=== PATIENT | female | born 1970 | race Caucasian/White ===

== ENCOUNTER 2020-10-13 13:50 | Outpatient (REF) | payer OTHER, SELFPAY | END 2020-10-13 13:51 | disposition home or self-care (01) | LOC: HO.LAB 13:50 | PROVIDERS: Visit Provider Internal Medicine | DX: Z20.828 Contact with and (suspected) exposure to other viral communicable diseases (principal) | CPT/HCPCS: C9803; U0003 ==

== ENCOUNTER 2022-06-01 11:48 | Emergency (ER) | payer OTHER, SELFPAY ==
--- NOTE | ~2022-06-01 | CT_ITS ---
EXAMINATION: CTA ABDOMEN AND PELVIS WITHOUT AND WITH CONTRAST (GI bleeding study) CLINICAL INFORMATION: Epigastric pain with melanoma and suspected peptic ulcer disease COMPARISON: None TECHNIQUE: Multidetector volumetric imaging was performed from the superior aspect of the liver through the pubic symphysis both before as well as following administration of 85 mL of Omnipaque 350. A third set of CT scans was performed 2 minutes after the administration of the IV contrast. Sagittal and coronal reformatted images were obtained on the technologist's workstation. Additional 2-D coronal and sagittal reformatted images and axial 3-D maximum intensity projection MIP images are generated on the CT workstation. This CT examination was performed using dose optimization techniques as appropriate, variously including the following: *Automated exposure control *Adjustment of mA and/or kV according to patient size (this includes techniques or standardized protocols for targeted exams where dose is matched to indication/reason for exam; i.e. extremities or head) *Use of iterative reconstruction technique DLP: 1817 mGy-cm FINDINGS: LUNG BASES: The visualized lung bases are unremarkable. LIVER, GALLBLADDER, AND BILIARY TREE: The liver is normal in size, shape, and attenuation. No focal hepatic lesion or biliary ductal dilatation is present. The gallbladder is unremarkable with no evidence of radiopaque gallstones, gallbladder wall thickening, or obvious pericholecystic inflammatory changes. PANCREAS: Unremarkable. SPLEEN: Spleen is mildly enlarged measuring a maximum of 13.2 cm in greatest transverse dimension. ADRENAL GLANDS: Unremarkable. KIDNEYS AND URETERS: The kidneys are normal in size, shape, and attenuation. No hydronephrosis, hydroureter, or calculi seen. No perinephric stranding. BLADDER: Unremarkable. GASTROINTESTINAL TRACT: The small and large bowel are unremarkable. There is no accumulation of contrast seen in bowel during or after the administration of IV contrast to suggest an active GI bleed at the time of this study. The appendix is unremarkable. ABDOMINAL WALL: No significant hernia is appreciated. LYMPH NODES: Normal. VASCULAR: The descending thoracic aorta appears normal. The abdominal aorta and visualized iliofemoral vessels appear normal. The celiac SMA and MADDIE are all widely patent. There are single renal arteries seen bilaterally which are widely patent. The portal venous system appears normal. PELVIC VISCERA: An anteverted uterus is present. Appears mildly enlarged extending to approximately 3 cm below the umbilicus. Some calcifications are seen in the fundus. Fibroids cannot be excluded. An abnormal adnexal mass or free intraperitoneal fluid is not seen. OSSEOUS STRUCTURES: Unremarkable. CT/CT gi bleed abd pel wo/w con IMPRESSION: No evidence of an active GI bleed. Other incidental findings as described above including mildly prominent spleen and mildly enlarged uterus. Fleischner guidelines were followed.
[2022-06-01 12:46] VITALS: BP 170/59; PULSE 62; RESP 18; TEMP 37; O2SAT 99; BMI 31.7
[2022-06-01 12:56] LABS: MANUAL DIFF FLAG NO
[2022-06-01 12:58] LABS: Basophils Percent Auto 0.4 % (0-2); Eosinophils Absolute Auto 0.2 X10*3/uL (0.0-0.4); Eosinophils Percent Auto 1.8 % (0-4); Hematocrit 31.2 % (37.0-47.0); Hemoglobin 10.2 g/dl (12.0-16.0); Imm Gran Abs Auto 0.07 X10*3/uL (0.00-0.03); Imm Gran Pct Auto 0.7 % (0.0-0.4); Lymphocytes Absolute Auto 2.2 X10*3/uL (1.2-4.9); Lymphocytes Percent Auto 23.1 % (20-40); Mean Corpuscular HGB Conc 32.7 g/dl (31.0-35.0); Mean Corpuscular Hemoglobin 29.5 pg (27.0-33.0); Mean Corpuscular Volume 90.2 fL (80.0-98.0); Monocytes Absolute Auto 0.5 X10*3/uL (0.1-1.2); Monocytes Percent Auto 5.3 % (2-11); Neutrophils Absolute Auto 6.5 x10*3/uL (2.0-8.3); Neutrophils Percent Auto 68.7 % (45-73); Platelet Count 278 X10*3/uL (160-400); Red Blood Count 3.46 X10*6/uL (4.20-5.50); Red Cell Distribution Width 13.4 % (11.0-16.0); White Blood Count 9.4 X10*3/uL (4.8-10.8)
[2022-06-01 13:54] LABS: Anion Gap 11 (12-20); Blood Urea Nitrogen 6 mg/dL (9-16); Calcium 8.6 mg/dL (8.4-10.2); Carbon Dioxide 27 mmol/L (22-29); Chloride 107 mmol/L (96-108); Creatinine Clr Calc Pharmacy 96.8; Estimated Glomerular Filt Rate > 60; Glucose Random 79 mg/dL (60-115); Potassium 3.8 mmol/L (3.3-5.1); Sodium 141 mmol/L (135-145)
--- NOTE | 2022-06-01 18:09 | ED.ABDPAIN ---
HPI - Abdominal Pain General Chief Complaint: Abdominal Pain Stated Complaint: stomach ache, black stool Source: patient Mode of arrival: ambulatory Limitations: no limitations History of Present Illness HPI narrative: 51-year-old female presents for 1 month of epigastric pain with black stools. Patient was referred emergency department by her primary care physician. She did have colonoscopy and upper endoscopy approximately 3 months ago with findings of gastritis. She has had black past several days, intermittent with diarrhea. Does not report any bright red blood per rectum. States to have early satiety and has severe abdominal pain approximately 1 hour after eating. Denies abdominal distention, fevers, chills, nausea, vomiting, dysuria, hematuria, chest pain or pressure, palpitations, shortness of breath, shortness breath on exertion, weakness and dizziness. MD elicited complaint: abdominal pain Pertinent past history: gastritis Onset (ago): month(s) (1) Pain Consistency: intermittent and colicky Location: epigastric Severity: severe Pain scale (0-10): 10 Quality: stabbing and aching Radiation: epigastric Migration to: no migration Exacerbating factors: eating Relieving factors: nothing Context: history of similar episodes Associated symptoms: melena Related Data Allergies Allergy/AdvReac Type Severity Reaction Status Date / Time Penicillins [PENICILLINS] Allergy Intermediate hives, Unverified 07/16/20 15:38 sick vomit penicillin V Allergy Unknown Verified 08/15/16 00:00 Review of Systems Review of Systems Constitutional: No Fever, No Chills ENT/Mouth: No Ear Pain, No Hoarseness, No sore throat Eyes: No Eye Pain, No Swelling, No Redness, No Foreign Body Cardiovascular: No Chest Pain, No SOB Respiratory: No Cough, No Dyspnea Gastrointestinal: No Nausea, No Vomiting, No Diarrhea, positive epigastric abdominal Pain, positive melena Genitourinary: No Dysuria, No Hematuria Musculoskeletal: no joint pain, No Myalgias, No Joint Swelling Skin: No Skin lacerations, No rash Neuro: No Weakness, No Numbness, No Paresthesias, No Loss of Consciousness, No Dizziness, No Headache Psych: No Anxiety/Panic, No Depression Heme/Lymph: no easy bruising, no Lymphadenopathy Endocrine: No Polyuria, No Polydipsia Yes all other systems are reviewed and are negative PMFSH Past Medical History Attestation statement: The following information was validated with the patient. Source: old records reviewed Social History Social History Advance Directives: No Advance Directives Information Provided: No Physical Exam ED Vital Signs: Vital Signs - 24 hr 06/01/22 12:46 06/01/22 18:45 06/01/22 20:24 Temperature 98.6 F 98.3 F Pulse Rate 62 50 52 Respiratory Rate 18 18 20 Blood Pressure 170/59 H 165/69 H 170/75 H Pulse Oximetry 99 99 99 Oxygen Delivery Method Room Air Room Air Room Air BMI result Body Mass Index 31.7 Appearance: Alert. Oriented X3. No acute distress. Eyes: Pupils equal, round and reactive to light. ENT: Pharynx normal. Neck: Normal inspection. Neck supple. CVS: Normal heart rate and rhythm. Pulses normal. Respiratory: No respiratory distress. Breath sounds normal. Abdomen: Soft and nontender. Genitourinary: Normal rectal tone Skin: Skin warm and dry. Normal skin color. Normal skin turgor. Extremities: No lower extremity edema. Gait well-balanced well coordinated Neuro: No motor deficit. No sensory deficit. Cranial nerves 2-12 intact. Course Course Course Narrative: 51-year-old female presents with 1 month of abdominal pain with intermittently occurring black diarrhea. She does state to take iron for anemia but does not correlate taking iron with black stools. She was worked up by Gastroenterology approximately 3 months ago with EGD and colonoscopy with findings of gastritis. She is on omeprazole on a daily basis. Reports the pain is worse approximately 1 hour after eating, and pain feels like an intense stabbing hunger. Labs drawn while she was in the emergency department waiting room, H&H is 10.2/31.2 which is consistent with her past medical history of anemia. At this time will order CT scan of abdomen pelvis GI study. CT abdomen pelvis negative for acute findings. Lipase mildly elevated but not significant for pancreatitis discharge gastroenterology. Patient verbalized understanding of and agrees plan of care discharge home. Verbalized understanding of signs symptoms indicating need for emergent intervention. MDM - Abdominal Pain Differential Diagnosis Differential diagnosis: Likely abdominal pain, calculus of kidney, diverticulitis, gastroenteritis, gastritis and peptic ulcer disease Medical Records Attestation: I reviewed the patient's medical records. Lab Data Attestation: I reviewed the patient's lab results. Result diagrams: 06/01/22 12:53 06/01/22 12:53 Labs: Lab Results 06/01/22 06/01/22 06/01/22 Range/Units 12:53 12:53 18:44 WBC 9.4 (4.8-10.8) X10*3/uL RBC 3.46 L (4.20-5.50) X10*6/uL Hgb 10.2 L (12.0-16.0) g/dl Hct 31.2 L (37.0-47.0) % MCV 90.2 (80.0-98.0) fL MCH 29.5 (27.0-33.0) pg MCHC 32.7 (31.0-35.0) g/dl RDW 13.4 (11.0-16.0) % Plt Count 278 (160-400) X10*3/uL MPV 10.0 (9.4-12.3) fL Immature Gran % (Auto) 0.7 H (0.0-0.4) % Neut % (Auto) 68.7 (45-73) % Lymph % (Auto) 23.1 (20-40) % Sandoval % (Auto) 5.3 (2-11) % Eos % (Auto) 1.8 (0-4) % Baso % (Auto) 0.4 (0-2) % Lymph # (Auto) 2.2 (1.2-4.9) X10*3/uL Sandoval # (Auto) 0.5 (0.1-1.2) X10*3/uL Eos # (Auto) 0.2 (0.0-0.4) X10*3/uL Baso # (Auto) 0.0 (0.0-0.2) X10*3/uL Abs Immat Gran (auto) 0.07 H (0.00-0.03) X10*3/uL Absolute Neuts (auto) 6.5 (2.0-8.3) x10*3/uL Absolute Nucleated RBC 0.000 (0.0-0.012) X10*3/uL Nucleated RBC % (auto) 0.0 (0.0-0.2) /100WBC Sodium 141 (135-145) mmol/L Potassium 3.8 (3.3-5.1) mmol/L Chloride 107 (96-108) mmol/L Carbon Dioxide 27 (22-29) mmol/L Anion Gap 11 L (12-20) BUN 6 L (9-16) mg/dL Creatinine 0.72 (0.5-1.4) mg/dL Estim Creat Clear Calc 96.8 Estimated GFR > 60 Random Glucose 79 (60-115) mg/dL Calcium 8.6 (8.4-10.2) mg/dL Total Bilirubin 0.9 (0.0-1.0) mg/dL Direct Bilirubin 0.3 (0.0-0.5) mg/dL AST 23 (5-31) U/L ALT 38 H (0-31) U/L Alkaline Phosphatase 79 (39-117) U/L Total Protein 6.5 (6.5-8.0) g/dL Albumin 3.9 (3.5-5.0) g/dL Lipase 80 H (8-78) U/L Stool Occult Blood NEGATIVE (NEGATIVE) Imaging Data CT scan - abdomen: Attestation: I personally reviewed and interpreted this imaging study as follows: Radiologist's impression: INDINGS: LUNG BASES: The visualized lung bases are unremarkable.? LIVER, GALLBLADDER, AND BILIARY TREE: The liver is normal in size, shape, and attenuation. No focal hepatic lesion or biliary ductal dilatation is present. The gallbladder is unremarkable with no evidence of radiopaque gallstones, gallbladder wall thickening, or obvious pericholecystic inflammatory changes.? PANCREAS: Unremarkable.? SPLEEN: Spleen is mildly enlarged measuring a maximum of 13.2 cm in greatest transverse dimension.? ADRENAL GLANDS: Unremarkable.? KIDNEYS AND URETERS: The kidneys are normal in size, shape, and attenuation. No hydronephrosis, hydroureter, or calculi seen. No perinephric stranding. ? BLADDER: Unremarkable.? GASTROINTESTINAL TRACT: The small and large bowel are unremarkable. There is no accumulation of contrast seen in bowel during or after the administration of IV contrast to suggest an active GI bleed at the time of this study. The appendix is unremarkable.? ABDOMINAL WALL: No significant hernia is appreciated.? LYMPH NODES: Normal. VASCULAR: The descending thoracic aorta appears normal. The abdominal aorta and visualized iliofemoral vessels appear normal. The celiac SMA and MADDIE are all widely patent. There are single renal arteries seen bilaterally which are widely patent. The portal venous system appears normal. PELVIC VISCERA: An anteverted uterus is present. Appears mildly enlarged extending to approximately 3 cm below the umbilicus. Some calcifications are seen in the fundus. Fibroids cannot be excluded. An abnormal adnexal mass or free intraperitoneal fluid is not seen. OSSEOUS STRUCTURES: Unremarkable.? CT/CT gi bleed abd pel wo/w con IMPRESSION: No evidence of an active GI bleed. Other incidental findings as described above including mildly prominent spleen and mildly enlarged uterus. ? Fleischner guidelines were followed. Discharge Plan Discharge Clinical Impression: Gastritis Patient Disposition: Home, Self-Care Instructions: Gastritis (ED) Additional Instructions: You were evaluated for epigastric pain and black stools. Your CT GI study is negative for acute findings requiring emergent intervention. Please follow-up with gastroenterology as your symptoms are consistent with gastritis. I have referred you to Dr. Brown. Please call and request an appointment for evaluation. Continue taking omeprazole as directed. Thank you for choosing this emergency department for evaluation. Please follow-up with primary care physician as needed. Return to the emergency department for any new, concerning, or worsening symptoms. Referrals: Fuentes Brown [Physician] - 2 weeks (Gastritis) Interventions: ED Discharge Assessment Last Done: 06/01/22 22:25 Discharge Date/Time: 06/01/22 22:30
[2022-06-01 18:45] VITALS: BP 165/69; PULSE 50; RESP 18; O2SAT 99
[2022-06-01 18:57] LABS: OBS Int Ctl Valid YES; OBS1 NEGATIVE (NEGATIVE)
--- NOTE | 2022-06-01 19:05 | PC.NURSE ---
Assumed care of this pt. at 1900 - report from Merle Villa RN
[2022-06-01] MEDS: iohexoL 350 MG/ML 100 ML INFUS..BTL IV (19:48)
[2022-06-01 20:24] VITALS: BP 170/75; PULSE 52; RESP 20; TEMP 36.8; O2SAT 99
[2022-06-01 20:43] LABS: Alanine Aminotransferase 38 U/L (0-31); Albumin Level 3.9 g/dL (3.5-5.0); Alkaline Phosphatase 79 U/L (39-117); Aspartate Amino Transferase 23 U/L (5-31); Bilirubin Direct 0.3 mg/dL (0.0-0.5); Bilirubin Total 0.9 mg/dL (0.0-1.0); Lipase 80 U/L (8-78); Total Protein 6.5 g/dL (6.5-8.0)
== END 2022-06-01 22:30 | disposition home or self-care (01) ==
PROVIDERS: Nurse Practitioner Family; Emergency Provider Internal Medicine; PCP Internal Medicine
DX: K29.70 Gastritis, unspecified, without bleeding (principal); Z79.899 Other long term (current) drug therapy
CPT/HCPCS: 36415; 74178; 80048; 80076; 82272; 83690; 85025; 99283; 99284; Q9967

== ENCOUNTER 2025-03-14 09:15 | Emergency (ER) | payer OTHER, SELFPAY ==
--- NOTE | ~2025-03-14 | CT_ITS ---
EXAMINATION: CT HEAD WITHOUT CONTRAST CLINICAL INFORMATION: Intractable headache x2 weeks. 54-year-old female. COMPARISON: None available. TECHNIQUE: Contiguous axial imaging was performed from the skull base to vertex without intravenous administration of contrast. This CT examination was performed using dose optimization techniques as appropriate, variously including the following: *Automated exposure control *Adjustment of mA and/or kV according to patient size (this includes techniques or standardized protocols for targeted exams where dose is matched to indication/reason for exam; i.e. extremities or head) *Use of iterative reconstruction technique FINDINGS: There is no evidence of intracranial hemorrhage or extra-axial fluid collection. There is no mass effect, or edema. No CT evidence of acute territorial infarct. Ventricles, sulci, and cisterns are normal in size and configuration for patient age. No hydrocephalus. No midline shift. Negative hyperdense MCA sign. Negative insular ribbon sign. No white matter abnormalities. Normal pituitary. Globes and orbital contents image normally. No extracranial soft tissue abnormalities. The paranasal sinuses, mastoid air cells, and tympanic cavities are normally aerated. No suspicious bony abnormalities. There are no acute fractures evident. CT/CT head/brain wo IV con IMPRESSION: No acute intracranial abnormality. Normal examination. Electronically signed by: Aiden Haq MD 03/14/2025 11:27 AM EDT
[2025-03-14 09:19] VITALS: BP 149/61; PULSE 82; RESP 18; TEMP 36.2; O2SAT 100; BMI 32.3
--- NOTE | 2025-03-14 10:33 | ED.HA ---
HPI - Headache General Chief Complaint: Headache Stated Complaint: Headache Time Seen by Provider: 03/14/25 10:23 Source: patient Mode of arrival: ambulatory Limitations: no limitations History of Present Illness ED Provider: yaima michele np HPI Narrative: patient is a 54-year-old female who presents emergency department for evaluation. She reports for the past 2 weeks she has had a constant headache described as a diffuse bandlike pressure all around her head with occasional throbbing sensation. It is constant in nature but with varying intensity. She does admit that it is typically worse when she is lying down to go to bed at night as well as when she awakes from her sleep. She has taken Tylenol occasionally without any relief. She has a additionally trialed ibuprofen 800 mg she is typically taking this at bedtime admits that she is able to sleep but when she awakes the headache remains. Denies history of chronic headache/migraine despite initial triage note mentioned that headaches are normal for the patient. She denies any red flag symptoms including fevers, chills, neck stiffness, malaise, aphasia, weakness, poor coordination, descriptors such as ?the worst headache ever ?or ?thunderclap?, or painful temporal region. Denies dizziness, lightheadedness, vision changes, URI symptoms, chest pain, shortness of breath, numbness or tingling of the extremities. Additionally, she admits that she has been experiencing lower back pain for the past week right worse than left radiating into the right thigh. She states that it is exacerbated with position change/movement. Admits to a history of similar pain in the past, no worse than typical. Denies associated genitourinary symptoms. Denies associated bladder bowel dysfunction. Related Data Previous Rx's ?Medication ?Instructions ?Recorded cyclobenzaprine 5 mg tablet 5 mg PO BEDTIME PRN muscle spasm 03/14/25 #10 tabs Allergies Allergy/AdvReac Type Severity Reaction Status Date / Time Penicillins [PENICILLINS] Allergy Intermediate hives, Verified 03/14/25 09:21 sick vomit Review of Systems Review of Systems: Yes all other systems are reviewed and are negative [facility] Past Medical History Attestation statement: The following information was validated with the patient. Source: old records reviewed Physical Exam Vital Signs: Vital Signs: Last Vital Signs Temp 96.8 F 03/14/25 15:04 Pulse 70 03/14/25 15:04 Resp 20 03/14/25 15:04 BP 123/73 03/14/25 15:04 Pulse Ox 100 03/14/25 15:04 O2 Del Method Room Air 03/14/25 15:04 BMI result Body Mass Index 32.3 Appearance: Alert.?Oriented to person, place and time. No acute distress.?Normal affect. Head: Normocephalic, atraumatic Eyes: Pupils equal, round and reactive to light. EOMI. No nystagmus. No ptosis. No tenderness to palpation over the temporal region. ENT: External auditory canal normal tympanic membrane pearly walker and intact bilaterally. Oropharynx normal. Neck: Normal inspection.? Neck supple. No nuchal rigidity. Negative Kernig and Brudzinski sign. CVS: Heart sounds normal. Normal heart rate and rhythm.? Pulses normal.?? Respiratory: No respiratory distress.? Lung sounds clear to auscultation bilaterally?? Abdomen: Soft and non-tender. Normoactive bowel sounds. ?? Back: No rashes or lesions. No midline lumbar spine tenderness, step-offs, deformities. Palpable tenderness along the right paraspinal muscle region. Positive straight leg test on the right. Skin: Skin warm and dry.? Normal skin color.? ?? Extremities: No lower extremity edema.? Neuro: Moves all extremities spontaneously. Sensation intact bilaterally. CN II-XII intact. No focal neuro deficits. Ambulatory with steady gait. Medications Administered Discontinued Medications Generic Name Dose Route Start Last Admin Trade Name Freq PRN Reason Stop Dose Admin Cyclobenzaprine HCl 5 mg 03/14/25 10:53 03/14/25 11:43 Cyclobenzaprine Hcl 5 Mg Tablet PO 03/14/25 10:54 5 mg ONCE ONE Administration Diphenhydramine HCl 25 mg 03/14/25 10:53 03/14/25 11:43 Diphenhydramine Hcl 50 Mg/Ml Vial IVPUSH 03/14/25 10:54 25 mg ONCE ONE Administration Sodium Chloride 1,000 mls @ 999 mls/hr 03/14/25 11:00 03/14/25 12:45 Ns IV 03/14/25 12:00 Infused .Q1H1M JOSE ANGEL Infusion Ketorolac Tromethamine 15 mg 03/14/25 10:53 03/14/25 11:40 Ketorolac Tromethamine 15 Mg/Ml Vial IVPUSH 03/14/25 10:54 15 mg ONCE ONE Administration Metoclopramide HCl 10 mg 03/14/25 10:53 03/14/25 11:36 Metoclopramide Hcl 10 Mg/2 Ml Vial IVPUSH 03/14/25 10:54 10 mg ONCE ONE Administration Medical Decision Making Medical Decision Making [facility] Narrative: Patient is a 54-year-old female with past medical history of hypertension, anemia who presents emergency department for evaluation of intractable headache over the past 2 weeks without associated neurological symptoms in addition to right lower back pain with history of similar episodes in the past as per HPI. Overall she is well-appearing, nontoxic, afebrile. She is mildly hypertensive 149/61 endorsing compliance with her lisinopril today. Has no focal neurological deficits on examination. Does not have exam findings concerning for cauda equina syndrome. No nuchal rigidity. Differential diagnosis may include Anemia, electrolyte derangement,SDH, SAH, ICH, [employer] mass, meningitis, encephalitis, cervical artery dissection, CVA, GCA, migraine, headache. Lower suspicion for acute angle closure glaucoma, neurosyphilis, History without concerning exposures, not exacerbated or worsened by exertion, no red flag symptoms, no vision changes, no new immunocompromising conditions, no focal neurological abnormalities. given age greater than 50, will obtain CT of the head to exclude intracranial pathology, no recent injury that would warrant XR imaging of the lumbar spine. She denies associated symptoms however will obtain to exclude urinary tract infection, I suspect that this is most consistent with a strain of the lumbar region. Patient will receive 1 L normal saline IV fluid, Toradol IV, Reglan IV, Benadryl IV in addition to cyclobenzaprine and pending re-evaluation. negative head CT. Symptomatic improvement after medicated. Ambulatory with a steady gait remains without focal neurological deficits. Back pain additionally has resolved as well. Stable for discharge home at this time, outpatient follow-up with PCP, strict return precautions reviewed. All questions answered. Differential Diagnosis Differential Diagnoses: The differential diagnosis associated with the presentation includes (SDH, SAH, ICH, [employer] mass, meningitis, encephalitis, CVA, GCA, migraine, headache) Admission/Observation Consideration of admission/observation: Escalation of care including admission/observation considered Lab Data [facility] Lab Attestation statement: I reviewed the patient's lab results. CBC is without leukocytosis, has a mild normocytic anemia that does not meet transfusion criteria, no thrombocytopenia. No significant electrolyte derangement. No LISA. LFTs overall unremarkable. Normal CRP. Urinalysis without evidence of infection. Viral serologies are negative. 03/14/25 11:03 03/14/25 11:03 Labs: Lab Results 03/14/25 03/14/25 03/14/25 Range/Units 11:03 11:04 13:34 WBC 9.0 (4.8-10.8) X10*3/uL RBC 4.15 L (4.20-5.50) X10*6/uL Hgb 11.5 L (12.0-16.0) g/dl Hct 35.9 L (37.0-47.0) % MCV 86.5 (80.0-98.0) fL MCH 27.7 (27.0-33.0) pg MCHC 32.0 (31.0-35.0) g/dl RDW 13.1 (11.0-16.0) % Plt Count 353 D (160-400) X10*3/uL MPV 10.0 (9.4-12.3) fL Immature Gran % (Auto) 0.3 (0.0-0.4) % Neut % (Auto) 56.1 (45-73) % Lymph % (Auto) 35.2 (20-40) % Merrick % (Auto) 6.9 (2-11) % Eos % (Auto) 0.9 (0-4) % Baso % (Auto) 0.6 (0-2) % Lymph # (Auto) 3.2 (1.2-4.9) X10*3/uL Merrick # (Auto) 0.6 (0.1-1.2) X10*3/uL Eos # (Auto) 0.1 (0.0-0.4) X10*3/uL Baso # (Auto) 0.1 (0.0-0.2) X10*3/uL Abs Immat Gran (auto) 0.03 (0.00-0.03) X10*3/uL Absolute Neuts (auto) 5.1 (2.0-8.3) x10*3/uL Absolute Nucleated RBC 0.000 (0.0-0.012) X10*3/uL Nucleated RBC % (auto) 0.0 (0.0-0.2) /100WBC Sodium 141 (135-145) mmol/L Potassium 4.3 (3.3-5.1) mmol/L Chloride 106 (96-108) mmol/L Carbon Dioxide 28 (22-29) mmol/L Anion Gap 11 L (12-20) BUN 9 (9-16) mg/dL Creatinine 0.68 (0.5-1.4) mg/dL Estim Creat Clear Calc 99.9 Estimated GFR > 60 Random Glucose 81 (60-115) mg/dL Calcium 9.7 D (8.4-10.2) mg/dL Magnesium 2.1 (1.6-2.6) mg/dL Total Bilirubin 1.1 H (0.0-1.0) mg/dL AST 28 (5-31) U/L ALT 16 (0-31) U/L Alkaline Phosphatase 91 (39-117) U/L C-Reactive Protein 0.35 (< or = 0.50) mg/dL Total Protein 7.6 (6.5-8.0) g/dL Albumin 4.4 (3.5-5.0) g/dL Lipase 65 (8-78) U/L Urine Color Yellow Urine Appearance Clear Urine pH 6.0 (5.0-9.0) Ur Specific Jonancy 1.010 (1.005-1.025) Urine Protein Negative (Neg-Trace) mg/dL Urine Glucose (UA) Negative (Negative) mg/dL Urine Ketones Negative (Negative) mg/dL Urine Blood Negative (Negative) Urine Nitrite Negative (Negative) Ur Leukocyte Esterase Negative (Negative) Influenza Type A (PCR) NEGATIVE (Negative) Influenza Type B (PCR) NEGATIVE (Negative) RSV RNA Qual (PCR) NEGATIVE (Negative) SARS-CoV-2 RNA (RT-PCR) NEGATIVE (Negative) Independent Interpretation I performed an independent interpretation of an: CT Scan ( No ICH or intracranial mass) Radiology Impression Discussion of test interpretation with radiology: I have reviewed the radiologist's reading. Radiologist Impression: CT/CT head/brain wo IV con IMPRESSION: No acute intracranial abnormality. Normal examination. External Record Review External record reviewed: Outpatient record Prescription Management I considered prescription management with: Pain Medication Discharge Plan Discharge Clinical Impression: Headache, Lumbar strain Patient Disposition: Home, Self-Care Instructions: Low Back Strain (ED), Acute Headache (ED), Lower Back Exercises (ED) Additional Instructions: head CT today does not show concerning findings to suggest an alternative cause for the headaches you have been experiencing. This may possibly be due to seasonal allergies given your endorsed intermittent symptoms as well. As discussed, your blood work does show that you are mildly anemic. urine test does not show evidence of infection. Your back pain secondary to strain of the musculature in the lower back. Be sure to rest over the next few days, by ice/heat 15 minutes 4-6 times daily. You can take ibuprofen 200 mg, 3 tablets (600mg) every 6-8 hours as needed for pain, in addition to Tylenol 500 mg, 2 tablets (1,000mg) every 4-6 hours as needed for pain, but not to exceed 3 doses daily (3,000mg).? For pain that is unrelieved by either of the above you may trial cyclobenzaprine/Flexeril as needed. This is a muscle relaxer, you should take it at bedtime, it may make you drowsy, you should not drive, drink alcohol, or work while taking this medication. Contact your primary care provider to arrange for a follow-up visit Prescriptions: New cyclobenzaprine 5 mg tablet 5 mg PO BEDTIME PRN (Reason: muscle spasm) Qty: 10 0RF Referrals: Shai Murphy MD [Primary Care Provider] - Interventions: ED Discharge Assessment Last Done: 03/14/25 15:04 Discharge Date/Time: 03/14/25 15:06 Print Language: Czech
--- OUTSIDE RECORDS SUMMARY | 2025-03-14 11:04 | XMS_ITS | Encounter Summary ---
Author Organization [facility] Address [address] [place] [address] Care Team Providers Care Carbon Furnace Operator Name Role Phone Parvin Browning MD Primary Care Provider Parvin Alfaro MD Primary Care Provider Parvin Alfaro MD Unavailable Unavailable Sam Calles Unavailable Kesha Nuñez MD Unavailable [phone] Ana Chandra PA-C Unavailable Caleb Lopez PA-C Unavailable Shai Murphy Primary Care Provider [phone] Yanet Sanford MD Unavailable [phone] Reason for Referral * EXTERNAL (Routine) - Authorized/Booked Specialty Diagnoses / Procedures Referred By Contac t Referred To Contact ORTHOPEDICS / Orthopedic Procedures REFERRAL TO ORTHOPEDICS (OUT OF NETWORK) Martin Paez PA-C [address] [place] [address] Ed Leigh MD [address] [place] [address] [address] [place] [address] Referral ID Status Reason Start Date Expiration Date V isits Requested Visits Authorized SEE NOTE Authorized/B ooked 02/06/2019 05/08/2019 1 1 Encounter Details Date Type Department Care Team Description 02/05/2019 Telephone Adult Medicine [facility] [address] [place] [address] Martin Paez PA-C [address] [place] [address] Social History Tobacco Use Types Packs/Day Years Used Date Smoking Tobacco: Never Smokeless Tobacco: Never Alcohol Use Standard Drinks/Week Comments No 0 (1 standard drink = 0.6 oz pur e alcohol) Sex Assigned at Date Recorded Female 02/09/2021 2:17 PM E DT Job Start Date Occupation Industry Not on file Not on file Not on file documented as of this encounter Miscellaneous Notes * Telephone Encounter - Martin Paez PA-C - 02/06/2019 10:41 AM EDT Ok signed Martin Paez PA-C * Telephone Encounter - Angela Ling - 02/06/2019 9:41 AM EDT I will need to bother you for one more order which I have pended, please review and sign Thank you.. Angela [facility] Consumer Loan Officer [facility] Department * Telephone Encounter - Martin Paez PA-C - 02/06/2019 8:42 AM EDT Joan that seems reasonable Martin Paze PA-C * Telephone Encounter - Angela Ling - 02/06/2019 8:31 AM EDT Just a question, Patient lives in [place] and there is Dr. Man in [place] who is a shoulder specialist. Would itbe OK to send the patient there instead? Im sure she would appreciate not having to travel to [place] if there is a specialist around where she lives. What are your thoughts? Angela [facility] Consumer Loan Officer [facility] Referrals Department * Telephone Encounter - Martin Paez PA-C - 02/06/2019 8:30 AM EDT Ok I reordered it Martin Paez PA-C * Telephone Encounter - Angela Ling - 02/06/2019 8:28 AM EDT I dont know what happened to it but there is nothing pending. * Telephone Encounter - Martin Paez PA-C - 02/06/2019 8:26 AM EDT I did a new one yesterday. It should be out of network. Martin Paez PA-C * Telephone Encounter - Angela Ling - 02/06/2019 8:22 AM EDT This is what your ordered: I will request a referral to orthopedics. [facility] Reason for referral: left shoulder pain, persistent ?RTC tear, we are obtaining MRI Has patient had surgery for this problem: No Priority: 3 weeks Payor: Not third-republican related If you are referring patient out of network and [facility] is an out of network provider, you need to place an out of network ortho order. What you had placed was an in network ortho order. This order is for [facility] providers only. [facility] is not a [facility] provider. Thank you Angela [facility] Consumer Loan Officer [facility] Referrals Department * Telephone Encounter - Martin Paez PA-C - 02/05/2019 4:57 PM EDT I did order this. Martin Paez PA-C * Telephone Encounter - Angela Anuradha - 02/05/2019 3:38 PM EDT Martin, please pend a new out of network order to [facility]. Cannot use in network order for out of network providers. Thank you Angela [facility] Consumer Loan Officer [facility] Department documented in this encounter Plan of Treatment Not on file documented as of this encounter Visit Diagnoses Not on filedocumented in this encounter Care Teams Carbon Furnace Operator Relationship Specialty Start Date End Date Parvin Browning MD PCP - General Internal Medicine 11/16/18 10/02/20 Parvin Browning MD PCP - General 10/03/20 06/01/22 Shai Murphy [address] [place] [address] PCP - General Internal Medicine 06/02/22 Parvin Browning MD Internal Medicine 10/03/20 12/06/21 Sam Calles PA Specialist Cardiology 11/03/21 Kesha Nuñez MD [address] [address] Surgeon Neurosurgery 01/24/22 Ana Chandra PA-C [address] [address] Specialist Neurosurgery 01/24/22 Caleb Lopez PA-C [address] [address] Specialist Neurosurgery 01/24/22 Yanet Sanford MD [address] [place] [address] Specialist Cardiology 08/24/22 documented as of this encounter
--- OUTSIDE RECORDS SUMMARY | 2025-03-14 11:04 | XMS_ITS | Encounter Summary ---
Author Organization [facility] Address [address] [place] [address] Care Team Providers Care Skiver Operator Name Role Phone Sam Calles Unavailable Kesha Nuñez MD Unavailable [phone] Ana Chadnra PA-C Unavailable Caleb Lopez PA-C Unavailable Shai Murphy Primary Care Provider [phone] Yanet Sanford MD Unavailable [phone] Encounter Details Date Type Department Care Team Description 04/04/2023 Incoming Correspondence [facility] Medical [facility] Neurosurgery Helena Easton [address] [address] Kesha Nuñez MD [address] [address] Social History Tobacco Use Types Packs/Day Years Used Date Smoking Tobacco: Never Smokeless Tobacco: Never Alcohol Use Standard Drinks/Week Comments No 0 (1 standard drink = 0.6 oz pur e alcohol) rarely Sex Assigned at Date Recorded Female 02/09/2021 2:17 PM E DT Job Start Date Occupation Industry Not on file Not on file Not on file COVID-19 Exposure Response Date Recorded In the last 10 days, have yo u been in contact with someone who was confirmed or suspected to have Coronavirus/COVID-19? No / Unsure 04/05/2023 12:57 PM EDT documented as of this encounter Plan of Treatment Not on file documented as of this encounter Visit Diagnoses Not on filedocumented in this encounter Care Teams Skiver Operator Relationship Specialty Start Date End Date Shai Murphy Catherine [address] [place] [address] PCP - General Internal Medicine 06/02/22 Sam Calles PA Specialist Cardiology 11/03/21 Kesha Nuñez MD [address] [address] Surgeon Neurosurgery 01/24/22 Ana Chandra PA-C [address] [address] Specialist Neurosurgery 01/24/22 Caleb Lopez PA-C [address] [address] Specialist Neurosurgery 01/24/22 Yanet Sanford MD [address] [place] [address] Specialist Cardiology 08/24/22 documented as of this encounter
--- OUTSIDE RECORDS SUMMARY | 2025-03-14 11:04 | XMS_ITS | Encounter Summary ---
Author Organization [facility] Address [address] [place] [address] Care Team Providers Care Educational Consultant Name Role Phone Parvin Browning MD Primary Care Provider Raymundo Farfan MD Primary Care Provider Parvin Yip MD Primary Care Provider Parvin Alfaro MD Primary Care Provider Parvin Alfaro MD Unavailable Unavailable Sam Calles Unavailable Kesha Nuñez MD Unavailable [phone] Ana Chandra PA-C Unavailable [phone] Caleb Lopez PA-C Unavailable Shai Murphy Primary Care Provider [phone] Yanet Sanford MD Unavailable [phone] Encounter Details Date Type Department Care Team Description 09/07/2016 Release of Information Medical Records [address] [place] [address] Abstract, Provider Social History Tobacco Use Types Packs/Day Years Used Date Smoking Tobacco: Never Smokeless Tobacco: Never Alcohol Use Standard Drinks/Week Comments No 0 (1 standard drink = 0.6 oz pur e alcohol) Sex Assigned at Date Recorded Female 02/09/2021 2:17 PM E DT Job Start Date Occupation Industry Not on file Not on file Not on file documented as of this encounter Plan of Treatment Not on file documented as of this encounter Visit Diagnoses Not on filedocumented in this encounter Care Teams Educational Consultant Relationship Specialty Start Date End Date Parvin Browning MD PCP - General Internal Medicine 05/22/15 09/23/18 Raymundo Ulrich MD PCP - General Internal Medicine 09/24/18 11/15/18 Parvin Browning MD PCP - General Internal Medicine 11/16/18 10/02/20 Parvin Browning MD PCP - General 10/03/20 06/01/22 Shai Murphy [address] [place] [address] PCP - General Internal Medicine 06/02/22 Parvin Browning MD Internal Medicine 10/03/20 12/06/21 Sam Calles PA Specialist Cardiology 11/03/21 Kesha Nuñez MD [address] [address] Surgeon Neurosurgery 01/24/22 Ana Chandra PA-C [address] [address] Specialist Neurosurgery 01/24/22 Caleb Lopez PA-C 175 [facility] [address] [place] [address] Specialist Neurosurgery 01/24/22 Yanet Sanford MD [address] [place] [address] Specialist Cardiology 08/24/22 documented as of this encounter
--- OUTSIDE RECORDS SUMMARY | 2025-03-14 11:04 | XMS_ITS | Encounter Summary ---
Author Organization [facility] Address [address] [place] [address] Care Team Providers Care Delinquent Account Clerk Name Role Phone Sam Calles Unavailable Kesha Nuñez MD Unavailable [phone] Ana Chandra PA-C Unavailable Caleb Lopez PA-C Unavailable Shai Murphy Primary Care Provider [phone] Yanet Sanford MD Unavailable [phone] Encounter Details Date Type Department Care Team Description 03/15/2023 Chef Concierge Report Medical Records [address] [place] [address] Adria Medina, ALIREZA Social History Tobacco Use Types Packs/Day Years [...] suspected to have Coronavirus/COVID-19? No / Unsure 02/14/2023 2:14 PM EDT documented as of this encounter Plan of Treatment Not on file documented as of this encounter Visit Diagnoses Not on filedocumented in this encounter Care Teams Delinquent Account Clerk Relationship Specialty Start Date End Date HermanloliShai [address] [place] [address] PCP - General Internal Medicine 06/02/22 Sam Calles PA Specialist Cardiology 11/03/21 Kesha Nuñez MD [address] [address] Surgeon Neurosurgery 01/24/22 Ana Chandra PA-C [address] [address] Specialist Neurosurgery 01/24/22 Caleb Lopez PA-C [address] [address] Specialist Neurosurgery 01/24/22 Yanet Sanford MD [address] [place] [address] Specialist Cardiology 08/24/22 documented as of this encounter
--- OUTSIDE RECORDS SUMMARY | 2025-03-14 11:04 | XMS_ITS | Encounter Summary ---
Author Organization [facility] Address [address] [place] [address] Care Team Providers Care Secondary School Principal Name Role Phone Parvin Browning MD Primary Care Provider Parvin Alfaro MD Primary Care Provider Parvin Alfaro MD Unavailable Unavailable Sam Calles Unavailable Kesha Nuñez MD Unavailable [phone] Ana Chandra PAGe Unavailable Caleb Lopez PAGe Unavailable Shai Murphy Primary Care Provider Yanet Sanford MD Unavailable [phone] Encounter Details Date Type Department Care Team Description 09/28/2020 Pt. Non Urgent Medical Question Adult Medicine [address] [address] Martin Paez PA-C [address] [place] [id number] Social History Tobacco Use Types Packs/Day Years Used Date Smoking Tobacco: Never Smokeless Tobacco: Never Alcohol Use Standard Drinks/Week Comments No 0 (1 standard drink = 0.6 oz pur e alcohol) none Sex Assigned at Date Recorded Female 02/09/2021 2:17 PM E DT Job Start Date Occupation Industry Not on file Not on file Not on file COVID-19 Exposure Response Date Recorded In the last month, have you been in contact with someone who was confirmed or suspected to have Coronavirus / COVID-19? No / Unsure 09/30/2020 10:11 AM EST documented as of this encounter Miscellaneous Notes * Telephone Encounter - Sofie Jeter M.A. - 09/28/2020 2:07 PM ESTFrom: Rosa Ibanez To: Martin Paze PA-C Sent: 09/28/2020 12:05 PM EST Subject: Back Pain Hello there: I've been with a bad lower back pain for the past 3 days. It gets real bad when layingdown, getting up after sitting down and going up the stairs. I already tried Ibuprofen 800 and it helped me a little to sleep overnight but woke up this morning again in pain. Can you please send me something str onger to the pharmacy, order a new xray of my back to see where we standing or anything else that you choose. Please let me know mary ann. Thank you very much for your time.... Happy Holidays! documented in this encounter Plan of Treatment Not on file documented as of this encounter Visit Diagnoses Not on filedocumented in this encounter Care Teams Secondary School Principal Relationship Specialty Start Date End Date Parvin Browning MD PCP - General Internal Medicine 11/16/18 10/02/20 Parvin Browning MD PCP - General 10/03/20 06/01/22 Shai Murphy [address] [place] [address] PCP - General Internal Medicine 06/02/22 Parvin Browning MD Internal Medicine 10/03/20 12/06/21 Sam Calles PA Specialist Cardiology 11/03/21 Kesha Nuñez MD [address] [place] [address] Surgeon Neurosurgery 01/24/22 Ana Chandra PA-C 175 [facility] [address] [place] [id number] Specialist Neurosurgery 01/24/22 Caleb Lopez PA-C [address] [address] Specialist Neurosurgery 01/24/22 Yanet Sanford MD [address] [place] [address] Specialist Cardiology 08/24/22 documented as of this encounter
--- OUTSIDE RECORDS SUMMARY | 2025-03-14 11:04 | XMS_ITS | Encounter Summary ---
Author Organization [facility] Address [address] [place] [address] Care Team Providers Care Protocol Officer Name Role Phone Parvin Browning MD Primary Care Provider Sam Pete Unavailable Kesha Nuñez MD Unavailable [phone] Ana Chandra PA-C Unavailable Caleb Lopez PA-C Unavailable [phone] Shai Murphy Primary Care Provider Yanet Sanford MD Unavailable [phone] Encounter Details Date Type Department Care Team Description 12/28/2021 Telephone Orthopedics-[address] [address] Juan Huizar PA-C Social History Tobacco Use Types Packs/Day Years [...] have Coronavirus / COVID-19? No / Unsure 12/23/2021 11:01 AM EST documented as of this encounter Plan of Treatment Not on file documented as of this encounter Visit Diagnoses Not on filedocumented in this encounter Care Teams Protocol Officer Relationship Specialty Start Date End Date Parvin Browning MD PCP - General 10/03/20 06/01/22 Shai Murphy [address] [place] [address] PCP - General Internal Medicine 06/02/22 Sam Calles PA Specialist Cardiology 11/03/21 Kesha Nuñez MD [address] [address] Surgeon Neurosurgery 01/24/22 Ana Chandra PA-C [address] [address] Specialist Neurosurgery 01/24/22 Caleb Lopez PA-C 175 [facility] [address] [place] [address] Specialist Neurosurgery 01/24/22 Yanet Sanford MD [address] [place] [address] Specialist Cardiology 08/24/22 documented as of this encounter
--- OUTSIDE RECORDS SUMMARY | 2025-03-14 11:04 | XMS_ITS | Encounter Summary ---
Author Organization [facility] Address [address] [place] [address] Care Team Providers Care Endoscope Technician Name Role Phone Parvin Browning MD Primary Care Provider Parvin Alfaro MD Primary Care Provider Parvin Alfaro MD Unavailable Unavailable Sam Calles Unavailable Kesha Nuñez MD Unavailable [phone] Ana Chandra PAGe Unavailable Caleb Lopez PAGe Unavailable Shai Murphy Primary Care Provider Yanet Sanford MD Unavailable [phone] Encounter Details Date Type Department Care Team Description 02/13/2019 Pt. Non Urgent Medical Question Adult Medicine [address] [id number] Martin Paez PA-C [address] [place] [id number] Social History Tobacco Use Types Packs/Day Years Used Date Smoking Tobacco: Never Smokeless Tobacco: Never Alcohol Use Standard Drinks/Week Comments No 0 (1 standard drink = 0.6 oz pur e alcohol) Sex Assigned at Date Recorded Female 02/09/2021 2:17 PM E DT Job Start Date Occupation Industry Not on file Not on file Not on file documented as of this encounter Progress Notes * Sia Zarate - 02/13/2019 3:03 PM EDTFrom: Rosa Ibanez To: Martin Paez PA-C Sent: 02/13/2019 12:46 PM EDT Subject: Emergency Referral Hi: I was seen this past monday at [facility] for my Rotator cuff tear with shoulder surgeon Dr. Vee .She discussed with me that i needed surgery, so she scheduled it for today but unfortunately is waspostponed because i need to go see a ship rigger first due to my heart murmur and chest pain. She ordered an EKG at [facility] yesterday, but she said for my DR to referred me to a ship rigger first so he can approve surgery. Please can you do an emergency referral for me so i can have this procedure done YARELIS, any questions or concerns, please give me a call. [phone] Thank you so much for your help :) documented in this encounter Plan of Treatment Not on file documented as of this encounter Visit Diagnoses Not on filedocumented in this encounter Care Teams Endoscope Technician Relationship Specialty Start Date End Date Parvin Browning MD PCP - General Internal Medicine 11/16/18 10/02/20 Parvin Browning MD PCP - General 10/03/20 06/01/22 Shai Murphy [address] [place] [address] PCP - General Internal Medicine 06/02/22 Parvin Browning MD Internal Medicine 10/03/20 12/06/21 Sam Calles PA Specialist Cardiology 11/03/21 Kesha Nuñez MD [address] [address] Surgeon Neurosurgery 01/24/22 Ana Chandra PA-C [address] [address] Specialist Neurosurgery 01/24/22 Caleb Lopez PA-C [address] [address] Specialist Neurosurgery 01/24/22 Yanet Sanford MD [address] [place] [address] Specialist Cardiology 08/24/22 documented as of this encounter
--- OUTSIDE RECORDS SUMMARY | 2025-03-14 11:04 | XMS_ITS | Encounter Summary ---
Author Organization [facility] Address [address] [place] [address] Care Team Providers Care Surgical Elastic Knitter Hand Frame Name Role Phone Sam Calles Unavailable Kesha Nuñez MD Unavailable [phone] Ana Chandra PA-C Unavailable [phone] Caleb Lopez PA-C Unavailable Shai Murphy Primary Care Provider Yanet Sanford MD Unavailable [phone] Reason for Visit * Reason Onset Date Comments Medication 03/17/2023 Encounter Details Date Type Department Care Team Description 03/17/2023 Telephone [facility] 175 [facility] [address] [place] [phone] Adria Medina DPM Medication Social History Tobacco Use Types Packs/Day Years [...] encounter Miscellaneous Notes * Telephone Encounter - Noa Warner - 03/17/2023 4:27 PM EDT Patient called office, she had surgery on 03/15/[address] Medina. Patient stated that she is taking the Oxycodone and Tylenol as prescribed but this is not helping with her pain. Patient would like advise to see if there is something that can be prescribed. I did inform Rosa that Dr. Medina might not get this message until Monday morning as it is 430 on Monday. I also advised that thereare telephone maintainer providers after hours if she has not heard anything and the pain is that bad. Patient can be reached at: [phone] (Home Phone) documented in this encounter Plan of Treatment Not on file documented as of this encounter Visit Diagnoses Not on filedocumented in this encounter Care Teams Surgical Elastic Knitter Hand Frame Relationship Specialty Start Date End Date Shai Murphy [address] [place] [address] PCP - General Internal Medicine 06/02/22 Sam Calles PA Specialist Cardiology 11/03/21 Kesha Nuñez MD [address] [address] Surgeon Neurosurgery 01/24/22 Ana Chandra PA-C [address] [address] Specialist Neurosurgery 01/24/22 Caleb Lopez PA-C [address] [address] Specialist Neurosurgery 01/24/22 Yanet Sanford MD [address] [place] [address] Specialist Cardiology 08/24/22 documented as of this encounter
--- OUTSIDE RECORDS SUMMARY | 2025-03-14 11:04 | XMS_ITS | Encounter Summary ---
Author Organization [facility] Address [address] [place] [address] Care Team Providers Care Trademark Affixer Name Role Phone Parvin Browning MD Primary Care Provider Raymundo Farfan MD Primary Care Provider Parvin Yip MD Primary Care Provider Parvin Alfaro MD Primary Care Provider Parvin Alfaro MD Unavailable Unavailable Sam Calles Unavailable Kesha Nuñez MD Unavailable [phone] Ana Chandra PA-C Unavailable [phone] Caleb Lopez PA-C Unavailable Shai Murphy Primary Care Provider Yanet Sanford MD Unavailable [phone] Encounter Details Date Type Department Care Team Description 06/21/2018 Gas Leak Inspector Helper Report Medical Records [address] [place] [address] Kesha Nuñez MD [address] [place] [address] [address] [place], [place] [id number] Social History Tobacco Use Types Packs/Day Years [...] on filedocumented in this encounter Care Teams Trademark Affixer Relationship Specialty Start Date End Date Parvin Browning MD PCP - General Internal Medicine 05/22/15 09/23/18 Raymundo Ulrich MD PCP - General Internal Medicine 09/24/18 11/15/18 Parvin Browning MD PCP - General Internal Medicine 11/16/18 10/02/20 Parvin Browning MD PCP - General 10/03/20 06/01/22 Shai Murphy [address] [place] [address] PCP - General Internal Medicine 06/02/22 Parvin Browning MD Internal Medicine 10/03/20 12/06/21 Sam Calles PA Specialist Cardiology 11/03/21 Kesha Nuñez MD [address] [address] Surgeon Neurosurgery 01/24/22 Ana Chandra PA-C [address] [address] Specialist Neurosurgery 01/24/22 Caleb Lopez PA-C [address] [address] Specialist Neurosurgery 01/24/22 Yanet Sanford MD [address] [place] [address] Specialist Cardiology 08/24/22 documented as of this encounter
--- OUTSIDE RECORDS SUMMARY | 2025-03-14 11:04 | XMS_ITS | Encounter Summary ---
[facility] Organization [facility] Address [address] [place] [address] Care Team Providers Care Wood Box Maker Name Role Phone Parvin Browning MD Primary Care Provider Parvin Alfaro MD Unavailable Unavailable Sam Calles Unavailable Kesha Nuñez MD Unavailable [phone] Ana Chandra PA-C Unavailable Caleb Lopez PA-C Unavailable Shai Murphy Primary Care Provider Yanet Sanford MD Unavailable [phone] Reason for Visit * Reason Comments E-prescribe Rx Request Encounter Details Date Type Department Care Team Description 02/16/2021 Refill Adult Medicine [address] [address] Parvin Browning MD E-prescribe Rx Request Social History Tobacco Use Types Packs/Day Years [...] encounter Miscellaneous Notes * Telephone Encounter - Parvin Browning - 02/19/2021 12:28 PM EDT 30 day sent. She needs to see me or my care team before further refill * Telephone Encounter - Catalina Murray - 02/18/2021 4:28 PM EDT Patient would like script to be: E-PRESCRIBED/FAXED TO PHARMACY WHEN WAS THE PATIENT'S LAST APPOINTMENT IN ADULT MEDICINE? 12/16/20 WHEN WAS THE LAST TIME THE PATIENT SAW THEIR PCP? 11/16/18 Does patient have an upcoming appointment? No- patient refused to book appointment (THE MEDICATION REQUESTED IS ON THE MED LIST ABOVE) All of the medications requested were on the CURRENT MEDS list Did you check the Pharmacy information above?: YES Patient wants: 90 -day supply Is this a mail order prescription request ? NO If the refill is from a FAXED refill request what is the RX # listed on the fax? N/A Patients current insurance carrier is: Payor: [facility] / Plan: [facility] INSURANCE / Product Type: OTHER documented in this encounter Plan of Treatment Not on file documented as of this encounter Visit Diagnoses Not on filedocumented in this encounter Care Teams Wood Box Maker Relationship Specialty Start Date End Date Parvin Browning MD PCP - General 10/03/20 06/01/22 Shai Murphy [address] [place] [address] PCP - General Internal Medicine 06/02/22 Parvin Browning MD Internal Medicine 10/03/20 12/06/21 Sma Calles PA Specialist Cardiology 11/03/21 Kesha Nuñez MD [address] [address] Surgeon Neurosurgery 01/24/22 Ana Chandra PA-C [address] [address] Specialist Neurosurgery 01/24/22 Caleb Lopez PA-C 175 [facility] [address] [place] [address] Specialist Neurosurgery 01/24/22 Yanet Sanford MD [address] [place] [address] Specialist Cardiology 08/24/22 documented as of this encounter
--- OUTSIDE RECORDS SUMMARY | 2025-03-14 11:04 | XMS_ITS | Encounter Summary ---
Author Organization [facility] Address [address] [place] [address] Care Team Providers Care Telephone Repairer Name Role Phone Sam Calles Unavailable Kesha Nuñez MD Unavailable [phone] Ana Chandra PA-C Unavailable [phone] Caleb Lopez PA-C Unavailable [phone] Shai Murphy Primary Care Provider Yanet Sanford MD Unavailable [phone] Reason for Visit * Reason Comments E-prescribe Rx Request Encounter Details Date Type Department Care Team Description 02/13/2023 Refill [facility] [address] [place] [address] [place] [id number] Adria Medina DPM E-prescribe Rx Request Social History Tobacco Use [...] on filedocumented in this encounter Care Teams Telephone Repairer Relationship Specialty Start Date End Date Shai MurphyKishore [address] [place] [address] PCP - General Internal Medicine 06/02/22 Sam Calles PA Specialist Cardiology 11/03/21 Kesha Nuñez MD [address] [address] Surgeon Neurosurgery 01/24/22 Ana Chandra PA-C [address] [address] Specialist Neurosurgery 01/24/22 Caleb Lopez PA-C [address] [address] Specialist Neurosurgery 01/24/22 Yanet Sanford MD [address] [place] [address] Specialist Cardiology 08/24/22 documented as of this encounter
--- OUTSIDE RECORDS SUMMARY | 2025-03-14 11:04 | XMS_ITS | Encounter Summary ---
Author Organization [facility] Address [address] [place] [address] Care Team Providers Care Feather Edger Name Role Phone Angella Jose MD Primary Care Provider Unavail able Parvin Browning MD Primary Care Provider Raymundo Farfan MD Primary Care Provider Parvin Yip MD Primary Care Provider Parvin Alfaro MD Primary Care Provider Parvin Alfaro MD Unavailable Unavailable Sam Calles Unavailable Kesha Nuñez MD Unavailable [phone] Ana Chandra-Adriana Unavailable [phone] Caleb Lopez PA-C Unavailable Shai Murphy Primary Care Provider Yanet Sanford MD Unavailable [phone] Reason for Visit * Reason Onset Date Comments Eye Exam 03/27/2013 Encounter Details Date Type Department Care Team Description 03/27/2013 [facility]phone [facility] [address] [place] [address] Mari Oliver, OD Eye Exam Social History Tobacco Use Types Packs/Day Years Used Date Smoking Tobacco: Never Smokeless Tobacco: Never Alcohol Use Standard Drinks/Week Comments Yes 0 (1 standard drink = 0.6 oz pur e alcohol) socially Sex Assigned at Date Recorded Female 02/09/2021 2:17 PM E DT Job Start Date Occupation Industry Not on file Not on file Not on file documented as of this encounter Miscellaneous Notes * Telephone Encounter - Claudia Rios - 03/27/2013 1:49 PM EDT msg left to schedule eye exam after 03/15/14 documented in this encounter Plan of Treatment Not on file documented as of this encounter Visit Diagnoses Not on filedocumented in this encounter Care Teams Feather Edger Relationship Specialty Start Date End Date Angella Jose MD PCP - General 12/16/05 05/21/15 Parvin Browning MD PCP - General Internal Medicine 05/22/15 09/23/18 Raymundo Ulrich MD PCP - General Internal Medicine 09/24/18 11/15/18 Parvin Browning MD PCP - General Internal Medicine 11/16/18 10/02/20 Parvin Browning MD PCP - General 10/03/20 06/01/22 Shai Murphy [address] [place] [address] PCP - General Internal Medicine 06/02/22 Parvin Browning MD Internal Medicine 10/03/20 12/06/21 Sam Calles PA Specialist Cardiology 11/03/21 Kesha Nuñez MD [address] [address] Surgeon Neurosurgery 01/24/22 Ana Chandra PA-C [address] [address] Specialist Neurosurgery 01/24/22 Caleb Lopez PA-C [address] [address] Specialist Neurosurgery 01/24/22 Yanet Sanford MD [address] [place] [address] Specialist Cardiology 08/24/22 documented as of this encounter
--- OUTSIDE RECORDS SUMMARY | 2025-03-14 11:04 | XMS_ITS | Encounter Summary ---
Author Organization [facility] Address [address] [place] [address] Care Team Providers Care Head Of Strategy Name Role Phone Sam Calles Unavailable Kesha Nuñez MD Unavailable [phone] Ana Chandra PA-C Unavailable Caleb Lopez PA-C Unavailable Shai Murphy Primary Care Provider Yanet Sanford MD Unavailable [phone] Encounter Details Date Type Department Care Team Description 01/09/2023 Orders Only [facility] Medical [facility] Neurosurgery [place] [address] [phone] Ana Chandra PA-C [address] [id number] Lumbar spondylosis Social History Tobacco Use Types Packs/Day Years [...] Recorded In the last 10 days, have brian bautista been in contact with someone who was confirmed or suspected to have Coronavirus/COVID-19? No / Unsure 01/02/2023 8:35 AM EST documented as of this encounter Plan of Treatment Not on file documented as of this encounter Procedures Procedure Name Priority Date/Time Associated Diagnosis Comments MRI OF LUMBAR SPINE NO CONTRAST Routine Lumbar spondylosis documented in this encounter Results * MRI OF LUMBAR SPINE NO CONTRAST (01/02/2023) Ana Chandra PA-C MRI [employer] RADIOLOGY documented in this encounter Visit Diagnoses Diagnosis Lumbar spondylosis Lumbosacral spondylosis without myelopathy documented in this encounter Care Teams Head Of Strategy Relationship Specialty Start Date End Date Shai Murphy [address] [place] [address] PCP - General Internal Medicine 06/02/22 Sam Calles PA Specialist Cardiology 11/03/21 Kesha Nuñez MD [address] [address] Surgeon Neurosurgery 01/24/22 Ana Chandra PA-C [address] [address] Specialist Neurosurgery 01/24/22 Caleb Lopez PA-C [address] [address] Specialist Neurosurgery 01/24/22 Yanet Sanford MD [address] [place], [place] [address] Specialist Cardiology 08/24/22 documented as of this encounter
--- OUTSIDE RECORDS SUMMARY | 2025-03-14 11:04 | XMS_ITS | Encounter Summary ---
Author Organization [facility] Address [address] [place] [address] Care Team Providers Care Outreach Clinician Name Role Phone Parvin Browning MD Primary Care Provider Raymundo Farfan MD Primary Care Provider Parvin Yip MD Primary Care Provider Parvin Alfaro MD Primary Care Provider Parvin Alfaro MD Unavailable Unavailable Sam Calles Unavailable Kesha Nuñez MD Unavailable [phone] Ana Chandra PA-C Unavailable [phone] Caleb Lopez PASohanC Unavailable [phone] Shai Murphy Primary Care Provider [phone] Yanet Sanford MD Unavailable [phone] Reason for Visit * Reason Onset Date Comments Call From Md Arteaga 09/16/2016 Encounter Details Date Type Department Care Team Description 09/16/2016 Telephone [facility] [address] [address] May Steve MD [address] [place] [address] [place] [address] Call From Office Social History Tobacco Use Types Packs/Day Years [...] encounter Miscellaneous Notes * Telephone Encounter - Pam Lucio - 09/16/2016 10:04 AM EST Referral is sent by Fabricio valle not Dr Hernandez error documented in this encounter Plan of Treatment Not on file documented as of this encounter Visit Diagnoses Not on filedocumented in this encounter Care Teams Outreach Clinician Relationship Specialty Start Date End Date Parvin Browning MD PCP - General Internal Medicine 05/22/15 09/23/18 Raymundo Ulrich MD PCP - General Internal Medicine 09/24/18 11/15/18 Parvin Browning MD PCP - General Internal Medicine 11/16/18 10/02/20 Parvin Browning MD PCP - General 10/03/20 06/01/22 Shai Murphy [address] [place] [address] PCP - General Internal Medicine 06/02/22 Parvin Browning MD Internal Medicine 10/03/20 12/06/21 Sam Calles PA Specialist Cardiology 11/03/21 Kesha Nuñez MD [address] [address] Surgeon Neurosurgery 01/24/22 Ana Chandra PA-C [address] [address] Specialist Neurosurgery 01/24/22 Caleb Lopez PA-C [address] [address] Specialist Neurosurgery 01/24/22 Yanet Sanford MD [address] [place] [address] Specialist Cardiology 08/24/22 documented as of this encounter
--- OUTSIDE RECORDS SUMMARY | 2025-03-14 11:04 | XMS_ITS | Encounter Summary ---
Author Organization [facility] Address [address] [place] [address] Care Team Providers Care International Marketing Manager Name Role Phone Parvin Browning MD Primary Care Provider Raymundo Farfan MD Primary Care Provider Parvin Yip MD Primary Care Provider Parvin Alfaro MD Primary Care Provider Parvin Alfaro MD Unavailable Unavailable Sam Calles Unavailable Kesha Nuñez MD Unavailable [phone] Ana Chandra PA-C Unavailable Caleb LopezC Unavailable [phone] Shai Murphy Primary Care Provider Yanet Sanford MD Unavailable [phone] Encounter Details Date Type Department Care Team Description 08/19/2016 Director Adult Report Medical Records [address] [place] [address] Mya Fisher Social History Tobacco Use Types Packs/Day Years [...] on filedocumented in this encounter Care Teams International Marketing Manager Relationship Specialty Start Date End Date Parvin Browning MD PCP - General Internal Medicine 05/22/15 09/23/18 Raymundo Ulrich MD PCP - General Internal Medicine 09/24/18 11/15/18 Parvin Browning MD PCP - General Internal Medicine 11/16/18 10/02/20 Parvin Browning MD PCP - General 10/03/20 06/01/22 Shai Murphy [address] [place] [address] PCP - General Internal Medicine 06/02/22 Parvin Browning MD Internal Medicine 10/03/20 12/06/21 Sam Calles PA Specialist Cardiology 11/03/21 Kesha Nuñez MD [address] [address] Surgeon Neurosurgery 01/24/22 Ana Chandra PA-C [address] [address] Specialist Neurosurgery 01/24/22 Caleb Lopez PA-C 175 [facility] [address] [place] [address] Specialist Neurosurgery 01/24/22 Yanet Sanford MD [address] [place] [address] Specialist Cardiology 08/24/22 documented as of this encounter
--- OUTSIDE RECORDS SUMMARY | 2025-03-14 11:04 | XMS_ITS | Encounter Summary ---
Author Organization [facility] Address [address] [place] [address] Care Team Providers Care Superintendent Marine Name Role Phone Parvin Browning MD Primary Care Provider Sam Pete Unavailable Kesha Nuñez MD Unavailable [phone] Ana Chandra PA-C Unavailable [phone] Caleb Lopez PA-C Unavailable Shai Murphy Primary Care Provider Yanet Sanford MD Unavailable [phone] Encounter Details Date Type Department Care Team Description 12/16/2021 Hospital Medical Records [address] [place] [address] John Schneider MD 175 [facility] [address] [place] [address] Social History Tobacco Use Types Packs/Day Years [...] have Coronavirus / COVID-19? No / Unsure 12/15/2021 10:34 AM EST documented as of this encounter Plan of Treatment Not on file documented as of this encounter Visit Diagnoses Not on filedocumented in this encounter Care Teams Superintendent Marine Relationship Specialty Start Date End Date Parvin Browning MD PCP - General 10/03/20 06/01/22 Shai Murphy [address] [place] [address] PCP - General Internal Medicine 06/02/22 Sam Calles PA Specialist Cardiology 11/03/21 Kesha Nuñez MD [address] [address] Surgeon Neurosurgery 01/24/22 Ana Chandra PA-C [address] [address] Specialist Neurosurgery 01/24/22 Caleb Lopez PA-C [address] [address] Specialist Neurosurgery 01/24/22 Yanet Sanford MD [address] [place] [address] Specialist Cardiology 08/24/22 documented as of this encounter
--- OUTSIDE RECORDS SUMMARY | 2025-03-14 11:04 | XMS_ITS | Encounter Summary ---
Author Organization [facility] Address [address] [place] [address] Care Team Providers Care Photography Manager Name Role Phone Parvin Browning MD Primary Care Provider Parvin Alfaro MD Primary Care Provider Parvin Alfaro MD Unavailable Unavailable Sam Calles Unavailable Kesha Nuñez MD Unavailable [phone] Ana Chandra PA-C Unavailable Caleb Lopez PASohanC Unavailable Shai Murphy Primary Care Provider Yanet Sanford MD Unavailable [phone] Encounter Details Date Type Department Care Team Description 03/08/2019 Clay Burner Report Medical Records [address] [place] [address] Trevor Aponte MD [address] [place] [address] Social History Tobacco Use Types Packs/Day Years [...] on filedocumented in this encounter Care Teams Photography Manager Relationship Specialty Start Date End Date Parvin Browning MD PCP - General Internal Medicine 11/16/18 10/02/20 Pavrin Browning MD PCP - General 10/03/20 06/01/22 Shai Murphy [address] [place] [address] PCP - General Internal Medicine 06/02/22 Parvin Browning MD Internal Medicine 10/03/20 12/06/21 Sam Calles PA Specialist Cardiology 11/03/21 Kesha Nuñez MD [address] [address] Surgeon Neurosurgery 01/24/22 Ana Chandra PA-C [address] [address] Specialist Neurosurgery 01/24/22 Caleb Lopez PA-C [address] [address] Specialist Neurosurgery 01/24/22 Yanet Sanford MD [address] [place] [address] Specialist Cardiology 08/24/22 documented as of this encounter
--- OUTSIDE RECORDS SUMMARY | 2025-03-14 11:04 | XMS_ITS | Encounter Summary ---
Author Organization [facility] Address [address] [place] [address] Care Team Providers Care Auto Damage Estimator Name Role Phone Parvin Browning MD Primary Care Provider Parvin Alfaro MD Unavailable Unavailable Sam Calles Unavailable Kesha Nuñez MD Unavailable [phone] Ana Chandra PA-C Unavailable [phone] Caleb Lopez PA-C Unavailable [phone] Shai Murphy Primary Care Provider Yanet Sanford MD Unavailable [phone] Encounter Details Date Type Department Care Team Description 10/29/2020 Tub Wash Operator Report Medical Records [address] [place] [address] Kesha Nuñez MD 175 [facility] [address] [place] [address] Social History Tobacco Use Types Packs/Day Years [...] on filedocumented in this encounter Care Teams Auto Damage Estimator Relationship Specialty Start Date End Date Parvin Browning MD PCP - General 10/03/20 06/01/22 Shai Murphy [address] [place] [address] PCP - General Internal Medicine 06/02/22 Parvin Browning MD Internal Medicine 10/03/20 12/06/21 Sam Calles PA Specialist Cardiology 11/03/21 Kesha Nuñez MD [address] [address] Surgeon Neurosurgery 01/24/22 Ana Chandra PA-C [address] [address] Specialist Neurosurgery 01/24/22 Caleb Lopez PA-C [address] [address] Specialist Neurosurgery 01/24/22 Yanet Sanford MD [address] [place] [address] Specialist Cardiology 08/24/22 documented as of this encounter
--- OUTSIDE RECORDS SUMMARY | 2025-03-14 11:04 | XMS_ITS | Encounter Summary ---
Author Organization [facility] Address [address] [place] [address] Care Team Providers Care Cook Supervisor Name Role Phone Parvin Browning MD Primary Care Provider Raymundo Farfan MD Primary Care Provider Parvin Yip MD Primary Care Provider Parvin Alfaro MD Primary Care Provider Parvin Alfaro MD Unavailable Unavailable Sam Calles Unavailable Kesha Nuñez MD Unavailable [phone] Ana Chandra PA-C Unavailable Caleb Lopez PA-C Unavailable [phone] Shai Murphy Primary Care Provider Yanet Sanford MD Unavailable [phone] Encounter Details Date Type Department Care Team Description 08/16/2016 Release of Information Medical Records [address] [place] [id number] Abstract, Provider Social History Tobacco Use Types [...] on filedocumented in this encounter Care Teams Cook Supervisor Relationship Specialty Start Date End Date Parvin Browning MD PCP - General Internal Medicine 05/22/15 09/23/18 Raymundo Ulrich MD PCP - General Internal Medicine 09/24/18 11/15/18 Parvin Browning MD PCP - General Internal Medicine 11/16/18 10/02/20 Parvin Browning MD PCP - General 10/03/20 06/01/22 Shai Murphy [address] [place] [address] PCP - General Internal Medicine 06/02/22 Parvin Browning MD Internal Medicine 10/03/20 12/06/21 Sam Calles PA Specialist Cardiology 11/03/21 Kesha Nuñez MD [address] [address] Surgeon Neurosurgery 01/24/22 Ana Chandra PA-C [address] [address] Specialist Neurosurgery 01/24/22 Caleb Lopez PA-C 175 [facility] [address] [place] [address] Specialist Neurosurgery 01/24/22 Yanet Sanford MD [address] [place] [address] Specialist Cardiology 08/24/22 documented as of this encounter
--- OUTSIDE RECORDS SUMMARY | 2025-03-14 11:04 | XMS_ITS | Encounter Summary ---
Author Organization [facility] Address [address] [place] [address] Care Team Providers Care Solar Installer Technician Name Role Phone Parvin Browning MD Primary Care Provider Raymundo Farfan MD Primary Care Provider Parvin Yip MD Primary Care Provider Parvin Alfaro MD Primary Care Provider Parvin Alfaro MD Unavailable Unavailable Sam Calles Unavailable Kesha Nuñez MD Unavailable [phone] Ana Chandra PA-C Unavailable [phone] Caleb Lopez PASohanC Unavailable Shai Murphy Primary Care Provider Yanet Sanford MD Unavailable [phone] Reason for Visit * Reason Comments E-prescribe Rx Request Encounter Details Date Type Department Care Team Description 06/07/2018 Refill Adult Medicine [address] [id number] Parvin Browning MD E-prescribe Rx Request Social [...] encounter Miscellaneous Notes * Telephone Encounter - Kathy Jacobson - 06/07/2018 11:23 AM EDT Patient would like script to be: E-PRESCRIBED/FAXED TO PHARMACY WHEN WAS THE PATIENT'S LAST APPOINTMENT IN ADULT MEDICINE? 05/16/18 WHEN WAS THE LAST TIME THE PATIENT SAW THEIR PCP? 11/06/17 Does patient have an upcoming appointment? Yes 11/16/18 (THE MEDICATION REQUESTED IS ON THE MED LIST ABOVE) All of the medications requested were on the CURRENT MEDS list Did you check the Pharmacy information above?: YES Patient wants: 30 -day supply Is this a mail order prescription request ? NO If the refill is from a FAXED refill request what is the RX # listed on the fax? N/A Patients current insurance carrier is: Payor: [employer] / Plan: [employer] / Product Type: MEDICAID RISK documented in this encounter Plan of Treatment Not on file documented as of this encounter Visit Diagnoses Diagnosis Cervical radiculopathy Brachial neuritis or radiculitis nos documented in this encounter Care Teams Solar Installer Technician Relationship Specialty Start Date End Date Parvin Browning MD PCP - General Internal Medicine 05/22/15 09/23/18 Raymundo Ulrich MD PCP - General Internal Medicine 09/24/18 11/15/18 Parvin Browning MD PCP - General Internal Medicine 11/16/18 10/02/20 Parvin Browning MD PCP - General 10/03/20 06/01/22 Shai Murphy [address] [place] [address] PCP - General Internal Medicine 06/02/22 Parvin Browning MD Internal Medicine 10/03/20 12/06/21 Sam Calles PA Specialist Cardiology 11/03/21 Kesha Nuñez MD [address] [address] Surgeon Neurosurgery 01/24/22 Ana Chandra PA-C [address] [address] Specialist Neurosurgery 01/24/22 Caleb Lopez PA-C 175 [facility] [address] [place] [address] Specialist Neurosurgery 01/24/22 Yanet Sanford MD [address] [place] [address] Specialist Cardiology 08/24/22 documented as of this encounter
--- OUTSIDE RECORDS SUMMARY | 2025-03-14 11:05 | XMS_ITS | Encounter Summary ---
Author Organization [facility] Address [address] [place] [address] Care Team Providers Care Audit Lead Name Role Phone Raymundo Ulrich MD Primary Care Provider Parvin Yip MD Primary Care Provider Parvin Alfaro MD Primary Care Provider Parvin Alfaro MD Unavailable Unavailable Sam Calles Unavailable Kesha Nuñez MD Unavailable [phone] Ana Chandra PAGe Unavailable Caleb Lopez PASohanC Unavailable Shai Murphy Primary Care Provider [phone] Yanet Sanford MD Unavailable [phone] Encounter Details Date Type Department Care Team Description 11/06/2018 Release of Information Medical Records [address] [place] [id number] Abstract, Provider Social History Tobacco Use Types [...] on filedocumented in this encounter Care Teams Audit Lead Relationship Specialty Start Date End Date Raymundo Ulrich MD PCP - General Internal Medicine 09/24/18 11/15/18 Parvin Browning MD PCP - General Internal Medicine 11/16/18 10/02/20 Parvin Browning MD PCP - General 10/03/20 06/01/22 Shai Murphy [address] [place] [address] PCP - General Internal Medicine 06/02/22 Parvin Browning MD Internal Medicine 10/03/20 12/06/21 Sam Calles PA Specialist Cardiology 11/03/21 Kesha Nuñez MD [address] [address] Surgeon Neurosurgery 01/24/22 Ana Chandra PA-C [address] [address] Specialist Neurosurgery 01/24/22 Caleb Lopez PA-C [address] [address] Specialist Neurosurgery 01/24/22 Yanet Sanford MD [address] [place] [address] Specialist Cardiology 08/24/22 documented as of this encounter
--- OUTSIDE RECORDS SUMMARY | 2025-03-14 11:05 | XMS_ITS | Encounter Summary ---
Author Organization [facility] Address [address] [place] [address] Care Team Providers Care Program Coordinator Name Role Phone Parvin Browning MD Primary Care Provider Raymundo Farfan MD Primary Care Provider Parvin Yip MD Primary Care Provider Parvin Alfaro MD Primary Care Provider Parvin Alfaro MD Unavailable Unavailable Sam Calles Unavailable Kesha Nuñez MD Unavailable [phone] Ana Chandra PA-C Unavailable Caleb Lopez PA-C Unavailable [phone] Shai Murphy Primary Care Provider [phone] Yanet Sanford MD Unavailable [phone] Encounter Details Date Type Department Care Team Description 02/06/2017 Release of Information Medical Records [address] [place] [id number] Abstract, Provider Social History Tobacco Use Types [...] on filedocumented in this encounter Care Teams Program Coordinator Relationship Specialty Start Date End Date Parvin Browning MD PCP - General Internal Medicine 05/22/15 09/23/18 Raymundo Ulrich MD PCP - General Internal Medicine 09/24/18 11/15/18 Parvin Browning MD PCP - General Internal Medicine 11/16/18 10/02/20 Parvin Browning MD PCP - General 10/03/20 06/01/22 Shai Murphy [address] [place] [address] PCP - General Internal Medicine 06/02/22 Parvin Browning MD Internal Medicine 10/03/20 12/06/21 aSm Calles PA Specialist Cardiology 11/03/21 Kesha Nuñez MD [address] [address] Surgeon Neurosurgery 01/24/22 Ana Chandra PA-C [address] [address] Specialist Neurosurgery 01/24/22 Caleb Lopez PA-C 175 [facility] [address] [place] [address] Specialist Neurosurgery 01/24/22 Yanet Sanford MD [address] [place] [address] Specialist Cardiology 08/24/22 documented as of this encounter
--- OUTSIDE RECORDS SUMMARY | 2025-03-14 11:05 | XMS_ITS | Encounter Summary ---
Author Organization [facility] Address [address] [place] [address] Care Team Providers Care Steam Table Worker Name Role Phone Sam Calles Unavailable Kesha Nuñez MD Unavailable [phone] Ana Chandra PA-C Unavailable Caleb Lopez PA-C Unavailable Shai Murphy Primary Care Provider Yanet Sanford MD Unavailable [phone] Reason for Visit * Reason Comments E-prescribe Rx Request Encounter Details Date Type Department Care Team Description 07/14/2022 Refill Medical Records [address] [place] [address] John Schneider MD [address] [place] [address] [address] [place] [address] E-prescribe Rx Request Social History Tobacco Use [...] on filedocumented in this encounter Care Teams Steam Table Worker Relationship Specialty Start Date End Date Tee Murphysascha Alexander [address] [place] [address] PCP - General Internal Medicine 06/02/22 Sam Calles PA Specialist Cardiology 11/03/21 Kesha Nuñez MD [address] [address] Surgeon Neurosurgery 01/24/22 Ana Chandra PA-C [address] [address] Specialist Neurosurgery 01/24/22 Caleb Lopez PA-C [address] [address] Specialist Neurosurgery 01/24/22 Yanet Sanford MD [address] [place] [address] Specialist Cardiology 08/24/22 documented as of this encounter
--- OUTSIDE RECORDS SUMMARY | 2025-03-14 11:05 | XMS_ITS | Encounter Summary ---
Author Organization [facility] Address [address] [place] [address] Care Team Providers Care Director Of Global Sales Name Role Phone Angella Jose MD Primary Care Provider Unavail able Parvin Browning MD Primary Care Provider Raymundo Farfan MD Primary Care Provider Parvin Yip MD Primary Care Provider Parvin Alfaro MD Primary Care Provider Parvin Alfaro MD Unavailable Unavailable Sam Calles Unavailable Kesha Nuñez MD Unavailable [phone] Ana Chandra PA-C Unavailable Caleb Lopez PA-C Unavailable [phone] Shai Murphy Primary Care Provider Yanet Sanford MD Unavailable [phone] Reason for Visit * Reason Onset Date Comments Orders Call 07/12/2012 Encounter Details Date Type Department Care Team Description 07/12/2012 Telephone Adult Medicine [facility] [address] [place] [address] Angella Jose MD Orders Call Social History Tobacco Use Types Packs/Day Years [...] encounter Miscellaneous Notes * Telephone Encounter - Angella Jose MD - 07/12/2012 9:48 AM EDT Labs ordered * Telephone Encounter - Katerina Saldivar L.P.N. - 07/12/2012 9:36 AM EDT When are labs to be redrawn? * Telephone Encounter - Sam French - 07/12/2012 8:42 AM EDT Caller requesting call back from provider: Is the caller the patient? YES If caller is not the patient, what is the callers name? N/A Callers relationship to patient? N/A If person calling is not the patient themselves, is there a verbal release in FYI or permanent comments for this person: NO Reason for call back: Pt calling to request that orders be put in for lab work that the nurse told her they would put in for re-do lab work. Please place orders or contact patient if there are any questions or concerns Caller offered to speak with the nurse for assistance: YES Response: Patient offered to speak with nurse for assistance and patient agreed. Message forwarded to nurse. documented in this encounter Plan of Treatment Not on file documented as of this encounter Results * (ABNORMAL) HEMOGLOBIN ELECTROPHORESIS (09/14/2012 10:17 AM EST) HGB SOLUBILITY 2 Negative Negative [facility] HEMOGLOBIN A1 98.8(A) 94.0 - 98.0 % [facility] HEMOGLOBIN A2 1.2 0.7 - 3.1 % [facility] Comment: Performed at: ??RN - [facility] [address] ??[id number] Drafter Mechanical: Meagan Hernandez MD, Phone: ??[phone] HEMOGLOBIN S 0.0 0.0 % [facility] HEMOGLOBIN C 0.0 0.0 % [facility] HEMOGLOBIN F () 0.0 0.0 - 2.0 % [facility] HGB EVAL INTERPRETATION [facility] Comment: Normal adult hemoglobin present. Performed at: ??RN - [facility] [address] ??[id number] Drafter Mechanical: Meagan Hernandez MD, Phone: ??[phone] 09/14/2012 10:1 7 AM EST 09/14/2012 10:17 AM EST Angella Jose MD LAB Performing Organization Address [facility] de Phone Number [facility] * VITAMIN B-12, ASSAY (09/14/2012 10:17 AM EST) VITAMIN B12 366 211 - 946 pg/mL [facility] 09/14/2012 10:1 7 AM EST 09/14/2012 10:17 AM EST Angella Jose MD LAB Performing Organization Address [facility] Co de Phone Number [address] * FERRITIN ASSAY (09/14/2012 10:17 AM EST) FERRITIN 28 13 - 150 ng/ml [facility] 09/14/2012 10:1 7 AM EST 09/14/2012 10:17 AM EST Angella Jose MD LAB Performing Organization Address [facility] Co de Phone Number [address] * IRON/TIBC (09/14/2012 10:17 AM EST) UNSATURATED IRON BINDING CAP 381 ug/dl [facility] TIBC 458 152 - 496 ug/dL [facility] IRON 77 40 - 150 ug/dL [facility] % FE SATURATION 17 15 - 50 % [facility] 09/14/2012 10:1 7 AM EST 09/14/2012 10:17 AM EST Angella Jose MD LAB [facility] 444 [facility] documented in this encounter Visit Diagnoses Diagnosis Iron deficiency anemia- Primary Iron deficiency anemia, unspecified documented in this encounter Care Teams Director Of Global Sales Relationship Specialty Start Date End Date Angella Jose MD PCP - General 12/16/05 05/21/15 Parvin Browning MD PCP - General Internal Medicine 05/22/15 09/23/18 Raymundo Ulrich MD PCP - General Internal Medicine 09/24/18 11/15/18 Parvin Browning MD PCP - General Internal Medicine 11/16/18 10/02/20 Parvin Browning MD PCP - General 10/03/20 06/01/22 Shai Murphy [address] [place] [address] PCP - General Internal Medicine 06/02/22 Parvin Browning MD Internal Medicine 10/03/20 12/06/21 Sam Calles PA Specialist Cardiology 11/03/21 Kesha Nuñez MD [address] [address] Surgeon Neurosurgery 01/24/22 Ana Chandra PA-C [address] [address] Specialist Neurosurgery 01/24/22 Caleb Lopez PA-C [address] [address] Specialist Neurosurgery 01/24/22 Yanet Sanford MD [address] [place] [address] Specialist Cardiology 08/24/22 documented as of this encounter
--- OUTSIDE RECORDS SUMMARY | 2025-03-14 11:05 | XMS_ITS | Encounter Summary ---
Author Organization [facility] Address [address] [place] [address] Care Team Providers Care Accordion Tuner Name Role Phone Parvin Browning MD Primary Care Provider Raymundo Farfan MD Primary Care Provider Parvin Yip MD Primary Care Provider Parvin Alfaro MD Primary Care Provider Parvin Alfaro MD Unavailable Unavailable Sam Calles Unavailable Kesha Nuñez MD Unavailable [phone] Ana Chandra PA-C Unavailable Caleb LopezC Unavailable [phone] Shai Murphy Primary Care Provider Yanet Sanford MD Unavailable [phone] Encounter Details Date Type Department Care Team Description 08/15/2016 Acls Specialist Report Medical Records [address] [place] [address] Jazmine Lynn MD Social History Tobacco Use Types Packs/Day Years [...] on filedocumented in this encounter Care Teams Accordion Tuner Relationship Specialty Start Date End Date Parvin Browning MD PCP - General Internal Medicine 05/22/15 09/23/18 Raymundo Ulrich MD PCP - General Internal Medicine 09/24/18 11/15/18 Parvin Browning MD PCP - General Internal Medicine 11/16/18 10/02/20 Parvin Browning MD PCP - General 10/03/20 06/01/22 Shai Murphy [address] [place] [address] PCP - General Internal Medicine 06/02/22 Parvin Browning MD Internal Medicine 10/03/20 12/06/21 Sam Calles PA Specialist Cardiology 11/03/21 Kesha Nuñez MD [address] [address] Surgeon Neurosurgery 01/24/22 Ana Chandra PA-C [address] [address] Specialist Neurosurgery 01/24/22 Caleb Lopez PA-C 175 [facility] [address] [place] [address] Specialist Neurosurgery 01/24/22 Yanet Sanford MD [address] [place] [address] Specialist Cardiology 08/24/22 documented as of this encounter
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
--- OUTSIDE RECORDS SUMMARY | 2025-03-14 11:05 | XMS_ITS | Encounter Summary ---
Author Organization [facility] Address [address] [place] [address] Care Team Providers Care Final Operations Technician Name Role Phone Parvin Browning MD Primary Care Provider Raymundo Farfan MD Primary Care Provider Parvin Yip MD Primary Care Provider Parvin Alfaro MD Primary Care Provider Parvin Alfaro MD Unavailable Unavailable Sam Calles Unavailable Kesha Nueñz MD Unavailable [phone] Ana Chandra PA-C Unavailable Caleb LopezC Unavailable Shai Murphy Primary Care Provider Yanet Sanford MD Unavailable [phone] Encounter Details Date Type Department Care Team Description 10/10/2016 Front Clerk Report Medical Records [address] [place] [address] Jazmine Lynn MD Social History Tobacco Use [...] on filedocumented in this encounter Care Teams Final Operations Technician Relationship Specialty Start Date End Date Parvin Browning MD PCP - General Internal Medicine 05/22/15 09/23/18 Raymundo Ulrich MD PCP - General Internal Medicine 09/24/18 11/15/18 Parvin Browning MD PCP - General Internal Medicine 11/16/18 10/02/20 Parvin Browning MD PCP - General 10/03/20 06/01/22 Shai Murphy [address] [place] [address] PCP - General Internal Medicine 06/02/22 Parvin Browning MD Internal Medicine 10/03/20 12/06/21 Sam Calles PA Specialist Cardiology 11/03/21 Kesha Nuñez MD [address] [address] Surgeon Neurosurgery 01/24/22 Ana Chandra PA-C [address] [address] Specialist Neurosurgery 01/24/22 Caleb Lopez PA-C 175 [facility] [address] [place] [address] Specialist Neurosurgery 01/24/22 Yanet Sanford MD [address] [place] [address] Specialist Cardiology 08/24/22 documented as of this encounter
--- OUTSIDE RECORDS SUMMARY | 2025-03-14 11:05 | XMS_ITS | Encounter Summary ---
Author Organization [facility] Address [address] [place] [address] Care Team Providers Care Help Desk Supervisor Name Role Phone Sam Calles Unavailable Kesha Nuñez MD Unavailable [phone] Ana Chandra PA-C Unavailable Caleb Lopez PA-C Unavailable [phone] Shai Murphy Primary Care Provider Yanet Sanford MD Unavailable [phone] Encounter Details Date Type Department Care Team Description 08/12/2022 Incoming Correspondence [facility] Neurosurgery [place] [address] [address] Kesha Nuñez MD [address] [address] Social History Tobacco Use Types [...] suspected to have Coronavirus/COVID-19? No / Unsure 08/04/2022 1:29 PM EDT documented as of this encounter Plan of Treatment Not on file documented as of this encounter Visit Diagnoses Not on filedocumented in this encounter Care Teams Help Desk Supervisor Relationship Specialty Start Date End Date Shai Murphy Catherine [address] [place] [address] PCP - General Internal Medicine 06/02/22 Sam Calles PA Specialist Cardiology 11/03/21 Kesha Nuñez MD [address] [address] Surgeon Neurosurgery 01/24/22 Ana Chandra PA-C [address] [address] Specialist Neurosurgery 01/24/22 Caleb Lopez PA-C [address] [address] Specialist Neurosurgery 01/24/22 Yanet Sanford MD [address] [place] [address] Specialist Cardiology 08/24/22 documented as of this encounter
--- OUTSIDE RECORDS SUMMARY | 2025-03-14 11:05 | XMS_ITS | Encounter Summary ---
Author Organization [facility] Address [address] [place] [address] Care Team Providers Care Renewals Specialist Name Role Phone Parvin Browning MD Primary Care Provider Raymundo Farfan MD Primary Care Provider Parvin Yip MD Primary Care Provider Parvin Alfaro MD Primary Care Provider Parvin Alfaro MD Unavailable Unavailable Sam Calles Unavailable Kesha Nuñez MD Unavailable [phone] Ana Chandra PA-C Unavailable [phone] Caleb LopezC Unavailable [phone] Shai Murphy Primary Care Provider Yanet Sanford MD Unavailable [phone] Encounter Details Date Type Department Care Team Description 11/16/2016 Financial Accounting Manager Report Medical Records [address] [place] [address] Jazmine Lynn MD Social History Tobacco Use [...] on filedocumented in this encounter Care Teams Renewals Specialist Relationship Specialty Start Date End Date Parvin Browning MD PCP - General Internal Medicine 05/22/15 09/23/18 Raymundo Ulrich MD PCP - General Internal Medicine 09/24/18 11/15/18 Parvin Browning MD PCP - General Internal Medicine 11/16/18 10/02/20 Parvin Browning MD PCP - General 10/03/20 06/01/22 Shai Murphy [address] [place] [address] PCP - General Internal Medicine 06/02/22 Parvin Browning MD Internal Medicine 10/03/20 12/06/21 Sam Calles PA Specialist Cardiology 11/03/21 Kesha Nuñez MD [address] [address] Surgeon Neurosurgery 01/24/22 Ana Chandra PA-C [address] [address] Specialist Neurosurgery 01/24/22 Caleb Lopez PA-C 175 [facility] [address] [place] [address] Specialist Neurosurgery 01/24/22 Yanet Sanford MD [address] [place] [address] Specialist Cardiology 08/24/22 documented as of this encounter
--- OUTSIDE RECORDS SUMMARY | 2025-03-14 11:05 | XMS_ITS | Encounter Summary ---
Author Organization [facility] Address [address] [place] [address] Care Team Providers Care Forestry Hunter Name Role Phone Parvin Browning MD Primary Care Provider Raymundo Farfan MD Primary Care Provider Parvin Yip MD Primary Care Provider Parvin Alfaro MD Primary Care Provider Parvin Alfaro MD Unavailable Unavailable Sam Calles Unavailable Kesha Nuñez MD Unavailable [phone] Ana Chandra PA-C Unavailable [phone] Caleb Lopez PASohanC Unavailable Shai Murphy Primary Care Provider [phone] Yanet Sanford MD Unavailable [phone] Reason for Referral * EXTERNAL (Routine) - Authorized/Booked Specialty Diagnoses / Procedures Referred By Contac t Referred To Contact ORTHOPEDICS / Orthopedic Diagnoses Rotator cuff tendinitis, left Procedures REFERRAL TO ORTHOPEDICS Fabricio Bell, PA-C [address] [place] [address] Bia Vee MD [address] [place] [address] Referral ID Status Reason Start Date Expiration Date V isits Requested Visits Authorized SEE NOTE Authorized/B ooked 08/05/2016 11/06/2016 1 1 Reason for Visit * Reason Onset Date Comments Medication 08/05/2016 Encounter Details Date Type Department Care Team Description 08/05/2016 Telephone Physiatry - [address] [address] Fabricio Bell PA-C Medication Social History Tobacco Use Types Packs/Day [...] encounter Miscellaneous Notes * Telephone Encounter - Nelsy Aguilera - 08/05/2016 2:57 PM EDT Faxed to pharmacy. * Telephone Encounter - Nelsy Aguilera - 08/05/2016 2:45 PM EDT Spoke with pt. Pt aware rx will be faxed to pharmacy today. In addition, that she was referred to orthopedics. * Telephone Encounter - Waqas Ludwig - 08/05/2016 2:32 PM EDT Patient is returning nurse call. * Telephone Encounter - Nelsy Aguilera - 08/05/2016 2:30 PM EDT Left message on voicemail to return call. * Telephone Encounter - Fabricio Bell PA-C - 08/05/2016 2:25 PM EDT A one-time prescription for tramadol was printed. She was also referred for orthopedic consultation. * Telephone Encounter - Pam Valdes - 08/05/2016 1:35 PM EDT Patient states her left shoulder is very painful. The pain is a 8 or 9. At night past 10.. She is asking if he can prescribe her something for the pain. She does not want to go to the ER. Please callpatient. documented in this encounter Plan of Treatment Not on file documented as of this encounter Visit Diagnoses Diagnosis Rotator cuff tendinitis, left- Primary documented in this encounter Care Teams Forestry Hunter Relationship Specialty Start Date End Date Parvin Browning MD PCP - General Internal Medicine 05/22/15 09/23/18 Raymundo Ulrich MD PCP - General Internal Medicine 09/24/18 11/15/18 Parvin Browning MD PCP - General Internal Medicine 11/16/18 10/02/20 Parvin Browning MD PCP - General 10/03/20 06/01/22 Shai Murphy [address] [place] [address] PCP - General Internal Medicine 06/02/22 Parvin Browning MD Internal Medicine 10/03/20 12/06/21 Sam Calles PA Specialist Cardiology 11/03/21 Kesha Nuñez MD [address] [address] Surgeon Neurosurgery 01/24/22 Ana Chandra PA-C [address] [address] Specialist Neurosurgery 01/24/22 Caleb Lopez PA-C 175 [facility] [address] [place] [address] Specialist Neurosurgery 01/24/22 Yanet Sanford MD [address] [place] [address] Specialist Cardiology 08/24/22 documented as of this encounter
--- OUTSIDE RECORDS SUMMARY | 2025-03-14 11:05 | XMS_ITS | Encounter Summary ---
Author Organization [facility] Address [address] [place] [address] Care Team Providers Care Warehouse Operations Associate Name Role Phone Angella Jose MD Primary Care Provider Unavail able Parvin Browning MD Primary Care Provider Raymundo Farfan MD Primary Care Provider Parvin Yip MD Primary Care Provider Parvin Alfaro MD Primary Care Provider Parvin Alfaro MD Unavailable Unavailable Sam Calles Unavailable Kesha Nuñez MD Unavailable [phone] Ana Chandra PA-C Unavailable Caleb Lopez PA-C Unavailable Shai Murphy Primary Care Provider [phone] Yanet Sanford MD Unavailable [phone] Encounter Details Date Type Department Care Team Description 09/30/2013 Pt. Non Urgent Medical Question [facility] [address] [address] Stef Chambers MD Social History Tobacco Use Types Packs/Day [...] as of this encounter Progress Notes * Pau Arechiga R.N. - 09/30/2013 9:09 AM ESTFrom: TRESKATT To: Stef Chambers MD Sent: MonSep 30, 2013 8:32 AM Subject: Concern I have this real bad cramps, they are very irregular like i never experience before. Also my periods is very heavy with LOTS of blood clots and tissues. This cramps feels like something is pulling inside and i cant move much due to the pain. I took some ibuprofen it took a while but seems to help a little bit. I will like to schedule an appt with Dr Chambers for further discution about options. Thank you documented in this encounter Plan of Treatment Not on file documented as of this encounter Visit Diagnoses Not on filedocumented in this encounter Care Teams Warehouse Operations Associate Relationship Specialty Start Date End Date Angella Jose MD PCP - General 12/16/05 05/21/15 Parvin Browning MD PCP - General Internal Medicine 05/22/15 09/23/18 Raymundo Ulrich MD PCP - General Internal Medicine 09/24/18 11/15/18 Parvin Browning MD PCP - General Internal Medicine 11/16/18 10/02/20 Parvin Browning MD PCP - General 10/03/20 06/01/22 Shai Murphy [address] [place] [address] PCP - General Internal Medicine 06/02/22 Parvin Browning MD Internal Medicine 10/03/20 12/06/21 Sam Calles PA Specialist Cardiology 11/03/21 Kesha Nuñez MD [address] [place] [address] Surgeon Neurosurgery 01/24/22 Ana Chandra PA-C 175 [facility] [address] [place] [address] Specialist Neurosurgery 01/24/22 Caleb Lopez PA-C 175 [facility] [address] [place] [address] Specialist Neurosurgery 01/24/22 Yanet Sanford MD [address] [place] [address] Specialist Cardiology 08/24/22 documented as of this encounter
--- OUTSIDE RECORDS SUMMARY | 2025-03-14 11:05 | XMS_ITS | Encounter Summary ---
[facility] Organization [facility] Address [address] [place] [address] Care Team Providers Care Track Inspector Name Role Phone Parvin Browning MD Primary Care Provider Raymunod Farfan MD Primary Care Provider Parvin Yip MD Primary Care Provider Parvin Alfaro MD Primary Care Provider Parvin Alfaro MD Unavailable Unavailable Sam Calles Unavailable Kesha Nuñez MD Unavailable [phone] Ana Chandra PA-C Unavailable Caleb Lopez PA-C Unavailable Shai Murphy Primary Care Provider Yanet Sanford MD Unavailable [phone] Encounter Details Date Type Department Care Team Description 11/15/2016 Release of Information Medical Records [address] [place] [id number] Abstract, Provider Social History Tobacco Use Types [...] on filedocumented in this encounter Care Teams Track Inspector Relationship Specialty Start Date End Date Parvin Browning MD PCP - General Internal Medicine 05/22/15 09/23/18 Raymundo Ulrich MD PCP - General Internal Medicine 09/24/18 11/15/18 Parvin Browning MD PCP - General Internal Medicine 11/16/18 10/02/20 Parivn Browning MD PCP - General 10/03/20 06/01/22 Shai Murphy [address] [place] [address] PCP - General Internal Medicine 06/02/22 Parvin Browning MD Internal Medicine 10/03/20 12/06/21 Sam Calles PA Specialist Cardiology 11/03/21 Kesha Nuñez MD [address] [address] Surgeon Neurosurgery 01/24/22 Ana Chandra PA-C [address] [address] Specialist Neurosurgery 01/24/22 Caleb Lopez PA-C 175 [facility] [address] [place] [address] Specialist Neurosurgery 01/24/22 Yanet Sanford MD [address] [place] [address] Specialist Cardiology 08/24/22 documented as of this encounter
--- OUTSIDE RECORDS SUMMARY | 2025-03-14 11:05 | XMS_ITS | Encounter Summary ---
Author Organization [facility] Address [address] [place] [address] Care Team Providers Care Wind Turbine Performance Engineer Name Role Phone Sam Calles Unavailable Kesha Nuñez MD Unavailable [phone] Ana Chandra PA-C Unavailable Caleb Lopez PA-C Unavailable Shai Murphy Primary Care Provider Yanet Sanford MD Unavailable [phone] Reason for Visit * Reason Comments E-prescribe Rx Request Encounter Details Date Type Department Care Team Description 07/07/2022 Refill Medical Records [address] [place] [address] John Schneider MD [address] [place] [address] [address] [place] [address] E-prescribe Rx Request Social History Tobacco Use [...] encounter Miscellaneous Notes * Telephone Encounter - Zaire Chung M.A. - 07/08/2022 4:41 PM EDT Rx currently under Provider Default in pt's carlos enrique; however, I do see that we have prescribed this in[facility]ult Med in the past. Lab Results Component Value Date NA 140 10/25/2021 K 4.2 10/25/2021 CO2 27 10/25/2021 CL 109 10/25/2021 BUN 8 10/25/2021 CREAT 0.68 10/25/2021 GLU 76 10/25/2021 CA 8.7 10/25/2021 GFR > 60 10/25/2021 DOM w/Dr. Browning 01/24/2022 DOM w/PCP not on file Next OV w/PCP 08/04/[address] Browning's absence, thank you. Are you able to fill? documented in this encounter Plan of Treatment Not on file documented as of this encounter Visit Diagnoses Not on filedocumented in this encounter Care Teams Wind Turbine Performance Engineer Relationship Specialty Start Date End Date Shai Murphy [address] [place] [address] PCP - General Internal Medicine 06/02/22 Sam Calles PA Specialist Cardiology 11/03/21 Kesha Nuñez MD [address] [address] Surgeon Neurosurgery 01/24/22 Ana Chandra PA-C [address] [address] Specialist Neurosurgery 01/24/22 Caleb Lopez PA-C [address] [address] Specialist Neurosurgery 01/24/22 Yanet Sanford MD [address] [place] [address] Specialist Cardiology 08/24/22 documented as of this encounter
--- OUTSIDE RECORDS SUMMARY | 2025-03-14 11:05 | XMS_ITS | Encounter Summary ---
Author Organization [facility] Address [address] [place] [address] Care Team Providers Care Auto Body Man Name Role Phone Parvin Browning MD Primary Care Provider Parvin Alfaro MD Primary Care Provider Parvin Alfaro MD Unavailable Unavailable Sam Calles Unavailable Kesha Nuñez MD Unavailable [phone] Ana Chandra PA-C Unavailable Caleb Lopez PA-C Unavailable Shai Murphy Primary Care Provider [phone] Yanet Sanford MD Unavailable [phone] Encounter Details Date Type Department Care Team Description 06/06/2019 Hospital Medical Records [address] [place] [address] Sandra Salinas Social History Tobacco Use Types Packs/Day Years [...] filedocumented in this encounter Care Teams Auto Body Man Relationship Specialty Start Date End Date Parvin Browning MD PCP - General Internal Medicine 11/16/18 10/02/20 Parvin Browning MD PCP - General 10/03/20 06/01/22 Shai Murphy [address] [place] [address] PCP - General Internal Medicine 06/02/22 Parvin Browning MD Internal Medicine 10/03/20 12/06/21 Sam Calles PA Specialist Cardiology 11/03/21 Kesha Nuñez MD [address] [address] Surgeon Neurosurgery 01/24/22 Ana Chandra PA-C [address] [address] Specialist Neurosurgery 01/24/22 Caleb Lopez PA-C 175 [facility] [address] [place] [address] Specialist Neurosurgery 01/24/22 Yanet Sanford MD [address] [place] [address] Specialist Cardiology 08/24/22 documented as of this encounter
--- OUTSIDE RECORDS SUMMARY | 2025-03-14 11:05 | XMS_ITS | Encounter Summary ---
Author Organization [facility] Address [address] [place] [address] Care Team Providers Care Hospital Secretary Name Role Phone Shai Murphy MD Primary Care Provider Reason for Visit * Reason Comments Headache X1-2 wk on/off Encounter Details Date Type Department Care Team (Late st Contact Info) Description 03/11/2025 4:45 PM EDT Office Visit Walk-In Clinic - [address] [phone] George Richey MD [address] [place] [address] Acute nonintractable headache, unspecified headache type (Primary Dx) Social History Tobacco Use Types Packs/Day Years Used Date Smoking Tobacco: Never Smokeless Tobacco: Never Alcohol Use Standard Drinks/Week Comments No 0 (1 standard drink = 0.6 oz pur e alcohol) Comments No Sex and Gender Information Value Date Recorded Sex Assigned at Female 09/02/2024 9:41 AM EST Legal Sex Female 7:34 PM EST Gender Identity Female 09/02/2024 9:41 AM EST Sexual Orientation Straight 09/02/2024 9: 41 AM EST documented as of this encounter Last Filed Vital Signs Vital Sign Reading Time Taken Comments Blood Pressure 108/62 03/11/2025 4:40 PM EDT Pulse 77 03/11/2025 4:40 PM EDT Temperature - - Respiratory Rate - - Oxygen Saturation 99% 03/11/2025 4:40 PM EDT Inhaled Oxygen Concentration - - Weight - - Height - - Body Mass Index - - documented in this encounter Progress Notes * George Richey MD - 03/11/2025 4:45 PM EDT CHIEF COMPLAINT: Headache (X1-2 wk on/off) HPI: Rosa Ibanez is a 54 y.o. old female who complains of bifrontal headaches for a week and a half. Patient states that at night headaches 7-8 on a scale 1- 10. These headaches are worse than previous headaches. Patient desires evaluation and imaging which is not available at a walk-in clinic. Patient is concerned due to the severity of these headaches. Headaches have become progressively worse.No known injury. No fever or chills. No rash. No neck pain or stiffness. No nausea or vomiting. ROS: Review of Systems Constitutional: Negative for chills and fever. Skin: Negative for rash. Neurological: Positive for headaches. PAST MEDICAL HISTORY: Patient Active Problem List Diagnosis Date Noted Osteoarthritis of both knees 04/17/2024 Chronic anemia 07/13/2023 Trigger finger, right middle finger 02/03/2023 Left sided sciatica 01/02/2023 Acute midline low back pain with left-sided sciatica 12/09/2022 Menorrhagia with regular cycle 11/24/2022 Gastroesophageal reflux disease without esophagitis 11/24/2022 Elevated blood pressure reading 09/01/2022 Mixed hyperlipidemia 08/24/2022 Iron deficiency 01/24/2022 Pelvic pain 03/25/2021 Syncope 03/31/2020 Fatty liver 11/22/2019 Urge incontinence 11/14/2019 Cough variant asthma 05/17/2018 Abnormality of lung on CXR 02/12/2018 Vitamin D deficiency 06/27/2017 PLMD (periodic limb movement disorder) 04/27/2016 Anxiety and depression 03/03/2016 Low back pain without sciatica 02/11/2016 Cervical spondylosis without myelopathy 02/11/2016 Chest pain 05/04/2010 Hypertriglyceridemia 04/14/2010 Heart murmur 04/13/2010 Iron deficiency anemia 05/04/2009 Allergic rhinitis 01/24/2008 Past Surgical History: Procedure Laterality Date SECTION PROCEDURE: SECTION;COMMENT:(x2) SECTION PROCEDURE: OK DELIVERY ONLY; COMMENT: x2 NECK SURGERY PROCEDURE:NECK SURGERY OTHER SURGICAL HISTORY 12/16/2021 PROCEDURE: OUTSIDE ENDOSCOPY; COMMENT: Erosive gastropathy OTHER SURGICAL HISTORY 06/06/2022 PROCEDURE: OK TOTAL DISC ARTHRP ANT SINGLE INTERSPACE CERVICAL; COMMENT: C5-6, C6-7 artificial discreplacement, Dr. Nuñez ROTATOR CUFF REPAIR Left PROCEDURE:ROTATOR CUFF REPAIR SHOULDER SURGERY Left 2019 PROCEDURE: HISTORICAL SHOULDER SURGERY; COMMENT: RTC left dr. tena TUBAL LIGATION 1995 PROCEDURE: HISTORICAL TUBAL LIGATION SOCIAL HISTORY: Social History Tobacco Use Smoking status: Never Smokeless tobacco: Never Substance Use Topics Alcohol use: No FAMILY HISTORY: Family History Problem Relation Name Age of Onset Cancer Father Hyperlipidemia Mother Hypertension Mother Arthritis Mother Hypertension Father Cataracts Father Arthritis Father Lung cancer Father smoker younger in life Other (Other: penis cancer) Father Mets Other (Other: healthy) Sister Hyperlipidemia Brother Diabetes Brother Heart attack Brother sudden collpase and Lung cancer Uncle Lung cancer Uncle Blindness Neg Hx Glaucoma Neg Hx Macular degeneration Neg Hx Strabismus Neg Hx Breast cancer Neg Hx Colon cancer Neg Hx Ovarian cancer Neg Hx Family Status Relation Name Status Father htn, ? lung mass Mother Alive htn, Sister Alive 2,heatlhy Brother Alive Brother Uncle Uncle Neg Hx (Not Specified) No partnership data on file MEDICATIONS DISCONTINUED/REORDERED: There are no discontinued medications. ACTIVE MEDICATIONS: No outpatient medications have been marked as taking for the 03/11/25 encounter (Office Visit) with George Richey MD. ALLERGIES: Allergies Allergen Reactions Penicillins Nausea And Vomiting PHYSICAL EXAM: Vitals: 03/11/25 1640 BP: 108/62 Pulse: 77 SpO2: 99% Physical Exam Vitals reviewed. Cardiovascular: Rate and Rhythm: Normal rate. Pulmonary: Effort: Pulmonary effort is normal. No respiratory distress. Neurological: General: No focal deficit present. Mental Status: She is alert and oriented to person, place, and time. Cranial Nerves: No cranial nerve deficit. Sensory: No sensory deficit. Motor: No weakness. Coordination: Coordination normal. Gait: Gait normal. Deep Tendon Reflexes: Reflexes normal. LABS/IMAGING: IMPRESSION: 1. Acute nonintractable headache, unspecified headache type PLAN: 1. Patient will report to [facility] ED. Expect was called. Advised the patient to call pcp if any problems. Patient understands the plan. Patient is in agreement with the plan. George Richey MD on 03/11/2025 at 5:02 PM EDT Today's documentation was made using voice recognition software. This note may contain grammatical errors secondary to this software. documented in this encounter Plan of Treatment Upcoming Encounters Date Type Department Care Team (Late st Contact Info) Description 05/29/2025 4:00 PM EDT Office Visit Adult Medicine [facility] [address] [place] [phone] Josiane Mejia PA [address] [place] [phone] documented as of this encounter Visit Diagnoses Diagnosis Acute nonintractable headache, unspecified headache type- Primary documented in this encounter Care Teams Hospital Secretary Relationship Specialty Start Date End Date Shai Murphy MD [address] [place] [address] PCP - General Hospitalist Medicine 06/02/22 documented as of this encounter
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
--- OUTSIDE RECORDS SUMMARY | 2025-03-14 11:05 | XMS_ITS | Encounter Summary ---
Author Organization [facility] Address [address] [place] [address] Care Team Providers Care Undercover Operator Name Role Phone Sam Calles Unavailable Kesha Nuñez MD Unavailable [phone] Ana Chandra PA-C Unavailable Caleb LopezC Unavailable Shai Murphy Primary Care Provider [phone] Yanet Sanford MD Unavailable [phone] Encounter Details Date Type Department Care Team Description 08/08/2024 SCAN [facility] [address] [facility] [address] [place] [address] Maru Denis MD 175 [facility] [address] [place] [address] Social History Tobacco Use Types Packs/Day Years Used Date Smoking Tobacco: Never Smokeless Tobacco: Never Alcohol Use Standard Drinks/Week Comments No 0 (1 standard drink = 0.6 oz pur e alcohol) rarely Sex Assigned at Date Recorded Female 02/09/2021 2:17 PM EDT Job Start Date Occupation Industry Not on file Not on file Not on file documented as of this encounter Plan of Treatment Not on file documented as of this encounter Visit Diagnoses Not on filedocumented in this encounter Care Teams Undercover Operator Relationship Specialty Start Date End Date [address] [place] [address] PCP - General Internal Medicine 06/02/22 Sam Calles PA Specialist Cardiology 11/03/21 Kesha Nuñez MD [address] [address] Surgeon Neurosurgery 01/24/22 Ana Chandra PA-C [address] [address] Specialist Neurosurgery 01/24/22 Caleb Lopez PA-C [address] [address] Specialist Neurosurgery 01/24/22 Yanet Sanford MD [address] [place] [address] Specialist Cardiology 08/24/22 documented as of this encounter
--- OUTSIDE RECORDS SUMMARY | 2025-03-14 11:05 | XMS_ITS | Encounter Summary ---
Author Organization [facility] Address [address] [place] [address] Care Team Providers Care Ultimate Hoops Trainer Name Role Phone Angella Jose MD Primary Care Provider Unavail able Parvin Browning MD Primary Care Provider Raymundo Farfan MD Primary Care Provider Parvin Yip MD Primary Care Provider Parvin Alfaro MD Primary Care Provider Parvin Alfaro MD Unavailable Unavailable Sam Calles Unavailable Kesha Nuñez MD Unavailable [phone] Ana Chandra-Adriana Unavailable Caleb LopezC Unavailable Shai Murphy Primary Care Provider [phone] Yanet Sanford MD Unavailable [phone] Encounter Details Date Type Department Care Team Description 04/15/2013 Release of Information Medical Records [address] [place] [id number] Abstract, Provider Social History Tobacco Use Types [...] on filedocumented in this encounter Care Teams Ultimate Hoops Trainer Relationship Specialty Start Date End Date Angella Jose MD PCP - General 12/16/05 05/21/15 Parvin Browning MD PCP - General Internal Medicine 05/22/15 09/23/18 Raymundo Ulrich MD PCP - General Internal Medicine 09/24/18 11/15/18 Parvin Browning MD PCP - General Internal Medicine 11/16/18 10/02/20 Parvin Browning MD PCP - General 10/03/20 06/01/22 Shai Murphy [address] [place] [address] PCP - General Internal Medicine 06/02/22 Parvin Browning MD Internal Medicine 10/03/20 12/06/21 Sam Calles PA Specialist Cardiology 11/03/21 Kesha Nuñez MD [address] [address] Surgeon Neurosurgery 01/24/22 Ana Chandra PA-C [address] [address] Specialist Neurosurgery 01/24/22 Caleb Lopez PA-C [address] [address] Specialist Neurosurgery 01/24/22 Yanet Sanford MD [address] [place] [address] Specialist Cardiology 08/24/22 documented as of this encounter
--- OUTSIDE RECORDS SUMMARY | 2025-03-14 11:05 | XMS_ITS | Clinical Summary ---
Author Organization [facility] Address [address] [place] [address] Care Team Providers Care Sales Enablement Consultant Name Role Phone Sam Calles Unavailable Kesha Nuñez MD Unavailable [phone] Ana Chandra PA-C Unavailable Caleb Lopez PA-C Unavailable Shai Murphy Primary Care Provider Yanet Sanford MD Unavailable [phone] Allergies Active Allergy Reactions Severity Noted Date Comments Penicillins Nausea and Vomiting Low 04/05/2006 Medications Medication Sig Dispensed Refills Start Date End Date Status Cholecalciferol (Vitamin D) 25 MCG (1000 UT) Tab Take 1,000 Units by mouth daily. 90 Tablet 1 04/17/2024 Active hydrOXYzine (ATARAX) 10 MG tablet Take 1 Tablet by mouth 3 times daily as needed for Anxiety. 90 Tablet 2 04/17/2024 Active lisinopril (PRINIVIL,ZESTRIL) 10 MG tablet Take 1 Tablet by mouth daily. 90 Tablet 1 04/17/2024 Active atorvastatin (Lipitor) 20 MG tablet Take 1 Tablet by mouth daily for 360 days. 90 Tablet 1 08/30/2024 08/25/2025 Active sertraline (Zoloft) 50 MG tablet Take 1 Tablet by mouth daily. 90 Tablet 1 08/30/2024 Active cyclobenzaprine (FLEXERIL) 5 MG tablet Take 1 Tablet by mouth 2 times daily as needed for Muscle spasms. 45 Tablet 1 08/30/2024 Active Active Problems Problem Noted Date Spondylosis of lumbar region without mye lopathy or radiculopathy 08/30/2024 Enlarged uterus 08/13/2024 Last Assessment & Plan: Reviewed previous US from 2020. Patient had a 12 cm uterus. No focal fibroids. Will repeat US to ensure no new concerning masses. Osteoarthritis of both knees 04/17/2024 Chronic anemia 07/13/2023 Trigger middle finger of left hand 02/03 Left sided sciatica 01/02/2023 Acute midline low back pain with left-si ded sciatica 12/09/2022 Last Assessment & Plan: Ms. Ibanez is [...] work without restrictions. Menorrhagia with regular cycle 3 Gastroesophageal reflux disease without esophagitis 11/24/2022 Elevated blood pressure reading 09/01/20 Last Assessment & Plan: Blood pressure elevated 141/70 today. Was also elevated 140s/80s at recent cardiology visit. Patient will follow-up with PCP Mixed hyperlipidemia 08/24/2022 Iron deficiency 01/24/2022 Overview: Iron deficiency Family history of colon cancer in father 12/15/2021 Pelvic pain 03/25/2021 Last Assessment & Plan: Discussed potential causes [...] deficiency 06/27/2017 PLMD (periodic limb movement disorder) 0 04/27/2016 Anxiety and depression 03/03/2016 Cervical spondylosis without myelopathy 02/11/2016 Last Assessment & Plan: Shamar was involved [...] treatment. A new referral slip was provided. Low back pain without sciatica 6 Chest pain 05/04/2010 Overview: 05/08-Exercise stress test without anginal symptoms, with [...] of 57%. Hypertriglyceridemia 04/14/2010 Heart murmur 04/13/2010 Overview: 04/04- echo-A technically adequate echocardiogram with minor findings of mild fibrocalcific changes of the aortic and mitral valves, trace mitral and mild tricuspid regurgitation Iron deficiency anemia 05/04/2009 Overview: 34.5 04/08 06/10- mri brain nad Allergic rhinitis 01/24/2008 Immunizations Name Administration Dates Next Due COVID-19 (Pfizer) Pt Reported 03/10/2021, 021 Hepatitis B > 19yrs 07/05/2006,02/01/2006,2005 Influenza (> 6 Months) 08/30/2024 Influenza Flu (PT Reported) 08/30/2020 Influenza Vaccine-preservati ve Free-quadrivalent 4 Years 07/13/2023,08/04/2022,12/06/2021,09/01 Influenza Vaccine-quadrivale nt 4 Years Plus 08/28/2020,08/22/2018,09/20/2017 Pneumoccoccal(Adult) Polysac charide PPSV23 01/09/2019 TD (STATE SUPPLIED FOR ADULT S AND CHILDREN) 12/16/2005 Tdap 09/18/2014 Family History Medical History Relation Name Comments Cholesterol Level Brother 1 Diabetes Brother 1 MO Brother 2 sudden collpase and Arthritis Father CA Lung Father smoker younger in life Cataract Father Hypertension Father penis cancer Father Mets Arthritis Mother Cholesterol Level Mother Hypertension Mother healthy Sister Cancer of the Lung Uncle 1 Cancer of the Lung Uncle 2 Blindness Negative Hx CA Breast Negative Hx CA Colon Negative Hx CA Ovarian Negative Hx Glaucoma Negative Hx Macular Degeneration Negative Hx Strabismus Negative Hx Relation Name Status Comments Brother 1 [...] file Not on file Not on file Last Filed Vital Signs Vital Sign Reading Time Taken Comments Blood Pressure 138/78 08/30/2024 3:46 PM EDT Pulse 68 08/30/2024 3:46 PM EDT Temperature 35.8 ??C (96.4 ??F) 08/30/2024 3:46 PM ED T Respiratory Rate 14 08/30/2024 3:46 PM EDT Oxygen Saturation 98% 07/05/2023 10:49 AM EDT Inhaled Oxygen Concentration - - Weight 81.6 kg (180 lb) 08/30/2024 3:46 PM EDT Height 162.6 cm (5' 4 ) 08/30/2024 3:46 PM EDT Body Mass Index 30.9 08/30/2024 3:46 PM EDT Plan of Treatment Health Maintenance Due Date Last Done Comments SHINGLES VACCINE (1 of 2) 2020 Covid-19 Vaccine (3 - 2022-2 4 season) 2024 03/10/2021, 01/26/2021 DTAP/TDAP/TD (2 - Td or Tdap) 09/18/2024 09/18/2014, 12/16/2005 BMI CHECK/ADVISE 10/30/2024 08/30/2024, , 02/06/2024, Additional history exists DEPRESSION SCREENING/FOLLOWUP 10/30/2024, 08/30/2024, 04/17/2024, Additional history exists SOCIAL NEEDS SCREENING 10/30/2024 07/05/2023 (Comple rickey) MAMMOGRAM 11/27/2024 11/27/2023, 10/31, 11/19/2021, Additional history exists BASELINE HEALTH EXAM 40-64 12/13/202512/13, 07/13/2023, 07/05/2023 (Completed), Additional history exists CHOLESTEROL SCREENING 12/13/2028 12/13/2023 , 11/24/2022, 08/25/2022, Additional history exists CERVICAL CANCER SCREENING 08/13/20292023, 08/21/2018, 04/22/2015, Additional history exists COLON CANCER SCREENING 02/05/2031 02/05/2021 PNEUMOCOCCAL VACCINE FOR HIG H RISK PATIENTS (#2) 2035 01/09/2019 INFLUENZA Completed 08/30/2024, 06/30, 08/04/2022, Additional history exists Care Teams Sales Enablement Consultant Relationship Specialty Start Date End Date Shai Murphy [address] [place] [address] PCP - General Internal Medicine 06/02/22 Sam Calles PA Specialist Cardiology 11/03/21 Kesha Nuñez MD [address] [address] Surgeon Neurosurgery 01/24/22 Ana Chandra PA-C [address] [address] Specialist Neurosurgery 01/24/22 Caleb Lopez PA-C [address] [address] Specialist Neurosurgery 01/24/22 Yanet Sanford MD [address] [place] [address] Specialist Cardiology 08/24/22
--- OUTSIDE RECORDS SUMMARY | 2025-03-14 11:05 | XMS_ITS | Encounter Summary ---
Author Organization [facility] Address [address] [place] [address] Care Team Providers Care Healthcare Network Pricing Consultant Name Role Phone Sam Calles Unavailable Kesha Nuñez MD Unavailable [phone] Ana Chandra PA-C Unavailable Caleb Lopez PA-C Unavailable [phone] Shai Murphy Primary Care Provider Yanet Sanford MD Unavailable [phone] Encounter Details Date Type Department Care Team Description 08/12/2022 Incoming Correspondence [facility] Neurosurgery [place] [address] [address] Kesha Nuñez MD [address] [address] Social History Tobacco Use Types [...] on filedocumented in this encounter Care Teams Healthcare Network Pricing Consultant Relationship Specialty Start Date End Date Shai Murphy Catherine [address] [place] [address] PCP - General Internal Medicine 06/02/22 Sam Calles PA Specialist Cardiology 11/03/21 Kesha Nuñez MD [address] [address] Surgeon Neurosurgery 01/24/22 Ana Chandra PA-C [address] [address] Specialist Neurosurgery 01/24/22 Caleb Lopez PA-C [address] [address] Specialist Neurosurgery 01/24/22 Yanet Sanford MD [address] [place] [address] Specialist Cardiology 08/24/22 documented as of this encounter
--- OUTSIDE RECORDS SUMMARY | 2025-03-14 11:05 | XMS_ITS | Encounter Summary ---
Author Organization [facility] Address [address] [place] [address] Care Team Providers Care Pediatric Clinical Dietician Name Role Phone Sam Calles Unavailable Kesha Nuñez MD Unavailable [phone] Ana Chandra PA-C Unavailable Caleb Lopez PA-C Unavailable Shai Murphy Primary Care Provider Yanet Sanford MD Unavailable [phone] Encounter Details Date Type Department Care Team Description 12/26/2023 Release of Information [facility] Neurosurgery [place] [address] [id number] Kesha Nuñez MD [address] [id number] Social History Tobacco Use Types Packs/Day Years [...] on filedocumented in this encounter Care Teams Pediatric Clinical Dietician Relationship Specialty Start Date End Date HermanloliShai [address] [place] [address] PCP - General Internal Medicine 06/02/22 Sam Calles PA Specialist Cardiology 11/03/21 Kesha Nuñez MD [address] [address] Surgeon Neurosurgery 01/24/22 Ana Chandra PA-C [address] [address] Specialist Neurosurgery 01/24/22 Caleb Lopez PA-C [address] [address] Specialist Neurosurgery 01/24/22 Yanet Sanford MD [address] [place] [address] Specialist Cardiology 08/24/22 documented as of this encounter
--- OUTSIDE RECORDS SUMMARY | 2025-03-14 11:05 | XMS_ITS | Encounter Summary ---
Author Organization [facility] Address [address] [place] [address] Care Team Providers Care Pot Maker Name Role Phone Parvin Browning MD Primary Care Provider Raymundo Farfan MD Primary Care Provider Parvin Yip MD Primary Care Provider Parvin Alfaro MD Primary Care Provider Parvin Alfaro MD Unavailable Unavailable Sam Calles Unavailable Kesha Nuñez MD Unavailable [phone] Ana Chandra-Adriana Unavailable Caleb LopezC Unavailable Shai Murphy Primary Care Provider [phone] Yanet Sanford MD Unavailable [phone] Encounter Details Date Type Department Care Team Description 08/02/2016 Pt. Non Urgent Medical Question Physiatry - [address] [address] May Steve MD [address] [place] [address] Dr [place]AN [place] [id number] Social History Tobacco Use Types Packs/Day Years [...] as of this encounter Progress Notes * Jeannine Caballero M.A. - 08/02/2016 9:35 AM EDTFrom: Rosa Ibanez To: May Steve MD Sent: 08/02/2016 9:30 AM EDT Subject: test results Good morning! I knew something was going on with my shoulder/arm because this is a non stop pain but can you please explain exactly whats going on with words that i can understand. I tried to look upthose medical terms but i got so confused. Also when am i going to see the orthopedic surgeon and in the mean time how am I supposed to deal with this horrible pain that doesn't go away and gets worse day by day. Please help :( documented in this encounter Plan of Treatment Not on file documented as of this encounter Visit Diagnoses Not on filedocumented in this encounter Care Teams Pot Maker Relationship Specialty Start Date End Date Parvin Browning MD PCP - General Internal Medicine 05/22/15 09/23/18 Raymundo Ulrich MD PCP - General Internal Medicine 09/24/18 11/15/18 Parvin Browning MD PCP - General Internal Medicine 11/16/18 10/02/20 Parvin Browning MD PCP - General 10/03/20 06/01/22 Shai Murphy [address] [place] [address] PCP - General Internal Medicine 06/02/22 Parvin Browning MD Internal Medicine 10/03/20 12/06/21 Sam Calles PA Specialist Cardiology 11/03/21 Kesha Nuñez MD 175 [facility] [address] [place] [address] Surgeon Neurosurgery 01/24/22 Ana Chandra PA-C [address] [address] Specialist Neurosurgery 01/24/22 Caleb Lopez PA-C [address] [address] Specialist Neurosurgery 01/24/22 Yanet Sanford MD [address] [place] [address] Specialist Cardiology 08/24/22 documented as of this encounter
--- OUTSIDE RECORDS SUMMARY | 2025-03-14 11:05 | XMS_ITS | Encounter Summary ---
Author Organization [facility] Address [address] [place] [address] Care Team Providers Care Propagator Laborer Name Role Phone Parvin Browning MD Primary Care Provider Sam Pete Unavailable Kesha Nuñez MD Unavailable [phone] Ana Chandra PA-C Unavailable [phone] Caleb Lopez PA-C Unavailable [phone] Shai Murphy Primary Care Provider [phone] Yanet Sanford MD Unavailable [phone] Encounter Details Date Type Department Care Team Description 04/26/2022 Incoming Correspondence [facility] Neurosurgery [place] [address] [address] Kesha Nuñez MD [address] [address] Social History Tobacco Use Types [...] on filedocumented in this encounter Care Teams Propagator Laborer Relationship Specialty Start Date End Date Parvin Browning MD PCP - General 10/03/20 06/01/22 Shai Murphy [address] [place] [address] PCP - General Internal Medicine 06/02/22 Sam Calles PA Specialist Cardiology 11/03/21 Kesha Nuñez MD [address] [address] Surgeon Neurosurgery 01/24/22 Ana Chandra PA-C [address] [address] Specialist Neurosurgery 01/24/22 Caleb Lopez PA-C [address] [address] Specialist Neurosurgery 01/24/22 Yanet Sanford MD [address] [place] [address] Specialist Cardiology 08/24/22 documented as of this encounter
--- OUTSIDE RECORDS SUMMARY | 2025-03-14 11:05 | XMS_ITS | Encounter Summary ---
Author Organization [facility] Address [address] [place] [address] Care Team Providers Care Master Automotive Technician Name Role Phone Parvin Browning MD Primary Care Provider Raymundo Farfan MD Primary Care Provider Parvin Yip MD Primary Care Provider Parvin Alfaro MD Primary Care Provider Parvin Alfaro MD Unavailable Unavailable Sam Calles Unavailable Kesha Nuñez MD Unavailable [phone] Ana Chandra PA-C Unavailable Caleb Lopez PASohanC Unavailable Shai Murphy Primary Care Provider Yanet Sanford MD Unavailable [phone] Reason for Visit * Reason Comments E-prescribe Rx Request Encounter Details Date Type Department Care Team Description 01/18/2018 Refill Adult Medicine [address] [phone] Parvin Browning MD E-prescribe Rx Request Social [...] encounter Miscellaneous Notes * Telephone Encounter - Tanisha Jacobson - 01/18/2018 9:47 AM EDT Patient would like script to be: E-PRESCRIBED/FAXED TO PHARMACY WHEN WAS THE PATIENT'S LAST APPOINTMENT IN ADULT MEDICINE? 01/12/18 WHEN WAS THE LAST TIME THE PATIENT SAW THEIR PCP? 11/06/17 Does patient have an upcoming appointment? Yes 05/16/18 (THE MEDICATION REQUESTED IS ON THE MED LIST ABOVE) All of the medications requested were on the CURRENT MEDS list Did you check the Pharmacy information above?: YES Patient wants: 30 -day supply Is this a mail order prescription request ? NO Patients current insurance carrier is: Payor: [facility] [employer] PLAN / Plan: [employer] $0 [id number] / Product Type: MEDICAID [id number] documented in this encounter Plan of Treatment Not on file documented as of this encounter Visit Diagnoses Not on filedocumented in this encounter Care Teams Master Automotive Technician Relationship Specialty Start Date End Date Parvin Browning MD PCP - General Internal Medicine 05/22/15 09/23/18 Raymundo Ulrich MD PCP - General Internal Medicine 09/24/18 11/15/18 Parvin Browning MD PCP - General Internal Medicine 11/16/18 10/02/20 Parvin Browning MD PCP - General 10/03/20 06/01/22 Shai Murphy [address] [place] [address] PCP - General Internal Medicine 06/02/22 Parvin Browning MD Internal Medicine 10/03/20 12/06/21 Sam Calles PA Specialist Cardiology 11/03/21 Kesha Nuñez MD [address] [address] Surgeon Neurosurgery 01/24/22 Ana Chandra PA-C [address] [address] Specialist Neurosurgery 01/24/22 Caleb Lopez PA-C 175 [facility] [address] [place] [address] Specialist Neurosurgery 01/24/22 Yanet Sanford MD [address] [place] [address] Specialist Cardiology 08/24/22 documented as of this encounter
--- OUTSIDE RECORDS SUMMARY | 2025-03-14 11:05 | XMS_ITS | Encounter Summary ---
Author Organization [facility] Address [address] [place] [address] Care Team Providers Care Housing Development Specialist Name Role Phone Parvin Browning MD Primary Care Provider Parvin Alfaro MD Primary Care Provider Parvin Alfaro MD Unavailable Unavailable Sam Calles Unavailable Kesha Nñuez MD Unavailable [phone] Ana Chandra PA-C Unavailable Caleb Lopez PASohanC Unavailable Shai Murphy Primary Care Provider Yanet Sanford MD Unavailable [phone] Encounter Details Date Type Department Care Team Description 03/05/2020 Wheel Loader Operator Report Medical Records [address] [place] [address] Trevor Aponte MD [address] [place], [place] [id number] Social History Tobacco Use Types Packs/Day Years [...] on filedocumented in this encounter Care Teams Housing Development Specialist Relationship Specialty Start Date End Date Parvin Browning MD PCP - General Internal Medicine 11/16/18 10/02/20 Parvin Browning MD PCP - General 10/03/20 06/01/22 Shai Murphy [address] [place] [address] PCP - General Internal Medicine 06/02/22 Parvin Browning MD Internal Medicine 10/03/20 12/06/21 Sam Calles PA Specialist Cardiology 11/03/21 Kesha Nuñez MD [address] [address] Surgeon Neurosurgery 01/24/22 Ana Chandra PA-C [address] [address] Specialist Neurosurgery 01/24/22 Caleb Lopez PA-C [address] [address] Specialist Neurosurgery 01/24/22 Yanet Sanford MD [address] [place] [address] Specialist Cardiology 08/24/22 documented as of this encounter
--- OUTSIDE RECORDS SUMMARY | 2025-03-14 11:05 | XMS_ITS | Encounter Summary ---
Author Organization [facility] Address [address] [place] [address] Care Team Providers Care Brine Mixer Operator Name Role Phone Parvin Browning MD Primary Care Provider Raymundo Farfan MD Primary Care Provider Parvin Yip MD Primary Care Provider Parvin Alfaro MD Primary Care Provider Parvin Alfaro MD Unavailable Unavailable Sam Calles Unavailable Kesha Nuñez MD Unavailable [phone] Ana Chandra PA-C Unavailable [phone] Caleb Lopez PASohanC Unavailable [phone] Shai Murphy Primary Care Provider [phone] Yanet Sanford MD Unavailable [phone] Reason for Visit * Reason Onset Date Comments Call From Md Arteaga 06/13/2016 Encounter Details Date Type Department Care Team Description 06/13/[address] [address] [phone] May Steve MD [address] [place] [address] [place] [address] Call From Office Social History Tobacco Use [...] encounter Miscellaneous Notes * Telephone Encounter - May Steve MD - 06/15/2016 8:50 AM EDT Ordered traction * Telephone Encounter - Ela Sanders L.P.N. - 06/14/2016 11:35 AM EDT Spoke to patient she is notified of the Message Below She wants to continue with the injection For her neck pain as she is still having the pain She is also asking about home traction for her neck pain Message to Dr Hernandez Also see my note from her therapist * Telephone Encounter - Candice Dinh - 06/14/2016 11:25 AM EDT Patient returned your call. * Telephone Encounter - Ela Sanders L.P.NKishore - 06/14/2016 11:09 AM EDT Spoke to Umm and she states that one of the reasons that the patient wanted to stop the therapy was that she was very frustrated with first going to pt for her back and now for her neck pain so she wants a break She is doing well with the cervical traction and may want to consider a home traction unit for the patient if her cervical injections do not work for her neck pain Called the patient to see if she is still going to have cervical injection ,left message on voice mail to call back * Telephone Encounter - May Steve MD - 06/14/2016 9:39 AM EDT Reviewed PT note that patient wanted to self discharge from PT due to resolution of pain. She does continue with numbness. 1. I placed order for EMG to rule out CTS (this was done in 2012 and time to repeat it) 2. Pls confirm if patient still wants to go ahead with injection scheduled with Dr. Warren on 06/23 * Telephone Encounter - Sandrine Flaherty M.A. - 06/13/2016 4:09 PM EDT Called Umm back informing her Dr. Hernandez is not in the office today but will be tu morning Umm doesn't start her day until 10am, message forwarded to Dr. Hernandez. D/C note faxed over from PT please review (placed in your inbox) and if you have any questions or concerns please call Umm * Telephone Encounter - Waqas Ludwig - 06/13/2016 4:03 PM EDT Umm is calling from [facility] Therapy regarding patient's neck pain She would like to speak with Dr. Hernandez. documented in this encounter Plan of Treatment Not on file documented as of this encounter Procedures Procedure Name Priority Date/Time Associated Diagnosis Comments EMG INTERNAL/EXTERNAL Routine 09/09/2016 Carpal tunnel syndrome of left wrist CERVICAL TRACTION EQUIPMENT Routine 06/15/2016 9:35 AM EDT Cervical radiculitis CERVICAL TRACTION EQUIPMENT Routine 06/15/2016 8:50 AM EDT Carpal tunnel syndrome of left wrist documented in this encounter Results * EMG INTERNAL/EXTERNAL (09/09/2016) May Steve MD PHYSIATRY documented in this encounter Visit Diagnoses Diagnosis Carpal tunnel syndrome of left wrist- Primary Carpal tunnel syndrome Cervical radiculitis Brachial neuritis or radiculitis nos documented in this encounter Care Teams Brine Mixer Operator Relationship Specialty Start Date End Date Parvin Browning MD PCP - General Internal Medicine 05/22/15 09/23/18 Raymundo Ulrich MD PCP - General Internal Medicine 09/24/18 11/15/18 Parvin Browning MD PCP - General Internal Medicine 11/16/18 10/02/20 Parvin Browning MD PCP - General 10/03/20 06/01/22 Shai Murphy [address] [place] [address] PCP - General Internal Medicine 06/02/22 Parvin Browning MD Internal Medicine 10/03/20 12/06/21 Sam Calles PA Specialist Cardiology 11/03/21 Kesha Nuñez MD [address] [address] Surgeon Neurosurgery 01/24/22 Ana Chandra PA-C [address] [address] Specialist Neurosurgery 01/24/22 Caleb Lopez PA-C 175 [facility] [address] [place] [address] Specialist Neurosurgery 01/24/22 Yanet Sanford MD [address] [place] [address] Specialist Cardiology 08/24/22 documented as of this encounter
--- OUTSIDE RECORDS SUMMARY | 2025-03-14 11:05 | XMS_ITS | Encounter Summary ---
Author Organization [facility] Address [address] [place] [address] Care Team Providers Care Drums Teacher Name Role Phone Parvin Browning MD Primary Care Provider Raymundo Farfan MD Primary Care Provider Parvin Yip MD Primary Care Provider Parvin Alfaro MD Primary Care Provider Parvin Alfaro MD Unavailable Unavailable Sam Calles Unavailable Kesha Nuñez MD Unavailable [phone] Ana Chandra PA-C Unavailable [phone] Caleb Lopez PA-C Unavailable Shai Murphy Primary Care Provider [phone] Yanet Sanford MD Unavailable [phone] Encounter Details Date Type Department Care Team Description 11/09/2015 Release of Information Medical Records [address] [place] [id number] Abstract, Provider Social History Tobacco Use Types [...] on filedocumented in this encounter Care Teams Drums Teacher Relationship Specialty Start Date End Date Parvin Browning MD PCP - General Internal Medicine 05/22/15 09/23/18 Raymundo Ulrich MD PCP - General Internal Medicine 09/24/18 11/15/18 Parvin Browning MD PCP - General Internal Medicine 11/16/18 10/02/20 Parvin Browning MD PCP - General 10/03/20 06/01/22 Shai Murphy [address] [place] [address] PCP - General Internal Medicine 06/02/22 Parvin Browning MD Internal Medicine 10/03/20 12/06/21 Sam Calles PA Specialist Cardiology 11/03/21 Kesha Nuñez MD [address] [address] Surgeon Neurosurgery 01/24/22 Ana Chandra PA-C [address] [address] Specialist Neurosurgery 01/24/22 Caleb Lopez PA-C 175 [facility] [address] [place] [address] Specialist Neurosurgery 01/24/22 Yanet Sanford MD [address] [place] [address] Specialist Cardiology 08/24/22 documented as of this encounter
--- OUTSIDE RECORDS SUMMARY | 2025-03-14 11:05 | XMS_ITS | Encounter Summary ---
Author Organization [facility] Address [address] [place] [address] Care Team Providers Care Education Dean Name Role Phone Parvin Browning MD Primary Care Provider Sam Pete Unavailable Kesha Nuñez MD Unavailable [phone] Ana Chandra PA-C Unavailable Caleb Lopez PA-C Unavailable Shai Murphy Primary Care Provider [phone] Yanet Sanford MD Unavailable [phone] Encounter Details Date Type Department Care Team Description 01/21/2022 Transfer Records [facility] Medical [facility] Neurosurgery [place] [address] [phone] Ana Chandra PA-C [address] [address] Social History Tobacco Use Types [...] suspected to have Coronavirus/COVID-19? No / Unsure 01/24/2022 9:29 AM EDT documented as of this encounter Plan of Treatment Not on file documented as of this encounter Visit Diagnoses Not on filedocumented in this encounter Care Teams Education Dean Relationship Specialty Start Date End Date Parvin Browning MD PCP - General 10/03/20 06/01/22 Shai Murphy [address] [place] [address] PCP - General Internal Medicine 06/02/22 Sam Calles PA Specialist Cardiology 11/03/21 Kesha Nuñez MD [address] [address] Surgeon Neurosurgery 01/24/22 Ana Chandra PA-C [address] [address] Specialist Neurosurgery 01/24/22 Caleb Lopez PA-C 175 [facility] [address] [place] [address] Specialist Neurosurgery 01/24/22 Yanet Sanford MD [address] [place] [address] Specialist Cardiology 08/24/22 documented as of this encounter
--- OUTSIDE RECORDS SUMMARY | 2025-03-14 11:05 | XMS_ITS | Encounter Summary ---
Author Organization [facility] Address [address] [place] [address] Care Team Providers Care Baggage Handling Supervisor Name Role Phone Shai Murphy MD Primary Care Provider Encounter Details Date Type Department Care Team (Late st Contact Info) Description 03/11/2025 - 03/12/2025 5:49 AM EDT Emergency [facility] Emergency [address] [place] [phone] Discharge Disposition: ED Dismiss - Never Arrived Social History Tobacco Use Types Packs/Day Years [...] AM EST documented as of this encounter Medications at Time of Discharge cholecalciferol (VITAMIN D-3) 25 mcg (1,000 unit) tablet Take 1 tablet (1,000 Units total) by mouth 1 (one) time each day. 90 tablet 1 10/21/2024 hydrOXYzine HCL (ATARAX) 10 mg tablet Take 1 Tablet by mouth 3 times daily as needed for Anxiety. 04/17/2024 lisinopriL (PRINIVIL,ZESTRIL ) 10 mg tablet TAKE 1 TABLET BY MOUTH EVERY DAY 90 tablet 1 10/10/2024 mirtazapine (REMERON) 7.5 mg tablet TAKE 1 TABLET BY MOUTH AT BEDTIME. 90 tablet 02/28/2025 sertraline (ZOLOFT) 50 mg tablet Take 1.5 tablets (75 mg total) by mouth 1 (one) time each day. 135 tablet 12/02/2024 documented as of this encounter Discharge Disposition Disposition Code Departure Means Destination ED Dismiss - Never Arrived documented in this encounter Plan of Treatment Upcoming Encounters Date Type Department Care Team (Late st Contact Info) Description 05/29/2025 4:00 PM EDT Office Visit Adult Medicine [address] [phone] Josiane Mejia PA [address] [place] [address] documented as of this encounter Visit Diagnoses Not on filedocumented in this encounter Care Teams Baggage Handling Supervisor Relationship Specialty Start Date End Date Shai Murphy MD [address] [place] [address] PCP - General Hospitalist Medicine 06/02/22 documented as of this encounter
--- OUTSIDE RECORDS SUMMARY | 2025-03-14 11:05 | XMS_ITS | Encounter Summary ---
Author Organization [facility] Address [address] [place] [address] Care Team Providers Care Brick Machine Operator Name Role Phone Sam Calles Unavailable Kesha Nuñez MD Unavailable [phone] Ana Chandra PA-C Unavailable Caleb Lopez PA-C Unavailable Shai Murphy Primary Care Provider [phone] Yanet Sanford MD Unavailable [phone] Encounter Details Date Type Department Care Team Description 06/03/2022 Hospital Medical Records [address] [place] [address] Ana Chandra PA-C 175 [facility] [address] [place] [address] Social History Tobacco Use Types Packs/Day Years [...] suspected to have Coronavirus/COVID-19? No / Unsure 06/06/2022 10:24 AM EDT documented as of this encounter Plan of Treatment Not on file documented as of this encounter Visit Diagnoses Not on filedocumented in this encounter Care Teams Brick Machine Operator Relationship Specialty Start Date End Date Shai MurphyKishore [address] [place] [address] PCP - General Internal Medicine 06/02/22 Sam Calles PA Specialist Cardiology 11/03/21 Kesha Nuñez MD [address] [address] Surgeon Neurosurgery 01/24/22 Ana Chandra PA-C [address] [address] Specialist Neurosurgery 01/24/22 Caleb Lopez PA-C [address] [address] Specialist Neurosurgery 01/24/22 Yanet Sanford MD [address] [place] [address] Specialist Cardiology 08/24/22 documented as of this encounter
--- OUTSIDE RECORDS SUMMARY | 2025-03-14 11:05 | XMS_ITS | Encounter Summary ---
Author Organization [facility] Address [address] [place] [address] Care Team Providers Care Service Rig Operator Name Role Phone Parvin Browning MD Primary Care Provider Parvin Alfaro MD Primary Care Provider Parvin Alfaro MD Unavailable Unavailable Sam Calles Unavailable Kesha Nuñez MD Unavailable [phone] Ana Chandra PAGe Unavailable Caleb Loepz PAGe Unavailable [phone] Shai Murphy Primary Care Provider [phone] Yanet Sanford MD Unavailable [phone] Reason for Visit * Reason Comments E-prescribe Rx Request Encounter Details Date Type Department Care Team Description 03/11/2020 Refill Adult Medicine [address] [id number] Martin Paez PA-C [address] [place] [address] [id number] E-prescribe Rx Request Social History Tobacco Use [...] encounter Miscellaneous Notes * Telephone Encounter - Maritza Zarate - 03/11/2020 3:45 PM EDT Daphney 12/17/19 Lab Results Component Value Date NA 137 11/14/2019 K 4.1 11/14/2019 CO2 26 11/14/2019 CL 103 11/14/2019 BUN 7 11/14/2019 CREAT 0.81 11/14/2019 GLU 102 11/14/2019 CA 9.4 11/14/2019 GFR > 60 11/14/2019 * Telephone Encounter - Josselyn Rodriguez - 03/11/2020 1:52 PM EDT Patient would like script to be: E-PRESCRIBED/FAXED TO PHARMACY WHEN WAS THE PATIENT'S LAST APPOINTMENT IN ADULT MEDICINE? 12/17/19 WHEN WAS THE LAST TIME THE PATIENT SAW THEIR PCP? Same as above Does patient have an upcoming appointment? Yes 03/31/20 (THE MEDICATION REQUESTED IS ON THE MED [...] as of this encounter Visit Diagnoses Diagnosis Urge incontinence Vasovagal syncope Syncope and collapse documented in this encounter Care Teams Service Rig Operator Relationship Specialty Start Date End Date Parvin Browning MD PCP - General Internal Medicine 11/16/18 10/02/20 Parvin Browning MD PCP - General 10/03/20 06/01/22 Shai Murphy [address] [place] [address] PCP - General Internal Medicine 06/02/22 Parvin Browning MD Internal Medicine 10/03/20 12/06/21 Sam Calles PA Specialist Cardiology 11/03/21 Kesha Nuñez MD [address] [address] Surgeon Neurosurgery 01/24/22 Ana Chandra PA-C [address] [address] Specialist Neurosurgery 01/24/22 Caleb Lopez PA-C 175 [facility] [address] [place] [address] Specialist Neurosurgery 01/24/22 Yanet Sanford MD [address] [place] [address] Specialist Cardiology 08/24/22 documented as of this encounter
--- OUTSIDE RECORDS SUMMARY | 2025-03-14 11:05 | XMS_ITS | Encounter Summary ---
Author Organization [facility] Address [address] [place] [address] Care Team Providers Care Payroll And Benefits Specialist Name Role Phone Parvin Browning MD Primary Care Provider Parvin Alfaro MD Primary Care Provider Parvin Alfaro MD Unavailable Unavailable Sam Calles Unavailable Kesha Nuñez MD Unavailable [phone] Ana Chandra PA-C Unavailable [phone] Caleb Lopez PA-C Unavailable [phone] Shai Murphy Primary Care Provider Yanet Sanford MD Unavailable [phone] Encounter Details Date Type Department Care Team Description 12/04/2018 [facility] Medical Records [address] [place] [id number] Abstract, Provider Social History Tobacco Use Types [...] on filedocumented in this encounter Care Teams Payroll And Benefits Specialist Relationship Specialty Start Date End Date Parvin Browning MD PCP - General Internal Medicine 11/16/18 10/02/20 Parvin Browning MD PCP - General 10/03/20 06/01/22 Shai Murphy [address] [place] [address] PCP - General Internal Medicine 06/02/22 Parvin Browning MD Internal Medicine 10/03/20 12/06/21 Sam Calles PA Specialist Cardiology 11/03/21 Kesha Nuñez MD 175 [facility] [address] [place] [address] Surgeon Neurosurgery 01/24/22 Ana Chandra PA-C [address] [address] Specialist Neurosurgery 01/24/22 Caleb Lopez PA-C 175 [facility] [address] [place] [address] Specialist Neurosurgery 01/24/22 Yanet Sanford MD [address] [place] [address] Specialist Cardiology 08/24/22 documented as of this encounter
--- OUTSIDE RECORDS SUMMARY | 2025-03-14 11:05 | XMS_ITS | Encounter Summary ---
Author Organization [facility] Address [address] [place] [address] Care Team Providers Care Steam Gigger Name Role Phone Parvin Browning MD Primary Care Provider Parvin Alfaro MD Primary Care Provider Parvin Alfaro MD Unavailable Unavailable Sam Calles Unavailable Kesha Nuñez MD Unavailable [phone] Ana Chandra PA-C Unavailable Caleb Lopez PA-C Unavailable [phone] Shai Murphy Primary Care Provider [phone] Yanet Sanford MD Unavailable [phone] Encounter Details Date Type Department Care Team Description 03/19/2019 Photocopy Operator Report Medical Records [address] [place] [address] Kesha Nuñez MD 175 [facility] [address] [place], [place] [phone] Social History Tobacco Use Types Packs/Day Years [...] filedocumented in this encounter Care Teams Steam Gigger Relationship Specialty Start Date End Date Parvin Browning MD PCP - General Internal Medicine 11/16/18 10/02/20 Parvin Browning MD PCP - General 10/03/20 06/01/22 Shai Murphy [address] [place] [address] PCP - General Internal Medicine 06/02/22 Parvin Browning MD Internal Medicine 10/03/20 12/06/21 Sam Calles PA Specialist Cardiology 11/03/21 Kesha Nuñez MD [address] [address] Surgeon Neurosurgery 01/24/22 Ana Chandra PA-C [address] [address] Specialist Neurosurgery 01/24/22 Caleb Lopez PA-C [address] [address] Specialist Neurosurgery 01/24/22 Yanet Sanford MD [address] [place] [address] Specialist Cardiology 08/24/22 documented as of this encounter
--- OUTSIDE RECORDS SUMMARY | 2025-03-14 11:05 | XMS_ITS | Encounter Summary ---
Author Organization [facility] Address [address] [place] [address] Care Team Providers Care Fire Pilot Name Role Phone Sam Calles Unavailable Kesha Nuñez MD Unavailable [phone] Ana Chandra PA-C Unavailable Caleb Lopez PA-C Unavailable [phone] Shai Murphy Primary Care Provider Yanet Sanford MD Unavailable [phone] Encounter Details Date Type Department Care Team Description 07/25/2022 Telephone Gastroenterology - [address] [place] [address] Nelly Hodge DScPAS Social History Tobacco Use Types Packs/Day Years [...] was confirmed or suspected to have Coronavirus/COVID-19? Unable to assess 07/25/2022 7:33 AM EDT documented as of this encounter Miscellaneous Notes * Telephone Encounter - Licha Nieto - 07/26/2022 10:53 AM EDT Booked for 09/05 documented in this encounter Plan of Treatment Not on file documented as of this encounter Visit Diagnoses Not on filedocumented in this encounter Care Teams Fire Pilot Relationship Specialty Start Date End Date Shai Murphy [address] [place] [address] PCP - General Internal Medicine 06/02/22 Sam Calles PA Specialist Cardiology 11/03/21 Kesha Nuñez MD [address] [address] Surgeon Neurosurgery 01/24/22 Ana Chandra PA-C [address] [address] Specialist Neurosurgery 01/24/22 aCleb Lopez PA-C [address] [address] Specialist Neurosurgery 01/24/22 Yanet Snaford MD [address] [place] [address] Specialist Cardiology 08/24/22 documented as of this encounter
--- OUTSIDE RECORDS SUMMARY | 2025-03-14 11:05 | XMS_ITS | Encounter Summary ---
Author Organization [facility] Address [address] [place] [address] Care Team Providers Care Agriculture Inspector Name Role Phone Shai Murphy MD Primary Care Provider Encounter Details Date Type Department Care Team (Late st Contact Info) Description 03/12/2025 Nurse Triage Adult Medicine [address] [phone] Josiane Mejia PA [address] [place] [address] Social History Tobacco Use Types Packs/Day Years [...] AM EST documented as of this encounter Progress Notes * Paris Holman RN - 03/12/2025 11:50 AM EDT Called and spoke to pt. She states she did not go to the ER as advised. She woke up with another headache today 03/08 at present time . We discussed her symptoms that where the same as yesterday , I advised her to return to the ER. For evaluation that was advised by the urgent care yesterday and to follow up with office after evaluation . Pt. Agrees and will have someone drive her documented in this encounter Plan of Treatment Upcoming Encounters Date Type Department Care Team (Late st Contact Info) Description 05/29/2025 4:00 PM EDT Office Visit Adult Medicine [address] [address] Josiane Mejia PA [address] [place] [address] documented as of this encounter Visit Diagnoses Not on filedocumented in this encounter Care Teams Agriculture Inspector Relationship Specialty Start Date End Date Shai Murphy MD [address] [place] [address] PCP - General Hospitalist Medicine 06/02/22 documented as of this encounter
--- OUTSIDE RECORDS SUMMARY | 2025-03-14 11:05 | XMS_ITS | Encounter Summary ---
Author Organization [facility] Address [address] [place] [address] Care Team Providers Care Retail Cosmetics Sales Counter Manager Name Role Phone Parvin Browning MD Primary Care Provider Raymundo Farfan MD Primary Care Provider Parvin Yip MD Primary Care Provider Parvin Alfaro MD Primary Care Provider Parvin Alfaro MD Unavailable Unavailable Sam Calles Unavailable Kesha Nuñez MD Unavailable [phone] Ana Chandra PA-C Unavailable [phone] Caleb Lopez PASohanC Unavailable [phone] Shai Murphy Primary Care Provider Yanet Sanford MD Unavailable [phone] Reason for Visit * Reason Comments E-prescribe Rx Request Encounter Details Date Type Department Care Team Description 07/01/2018 Refill Adult Urgent Care - [address] [phone] Parvin Browning MD E-prescribe Rx Request Social [...] encounter Miscellaneous Notes * Telephone Encounter - Jeane Squires M.A. - 07/04/2018 1:56 PM EDT What medication is patient requesting ? * Telephone Encounter - Karime Potter - 07/03/2018 11:14 AM EDT Patient would like script to [...] N/A Patients current insurance carrier is: Payor: [employer] / Plan: [employer] / Product Type: MEDICAID RISK documented in this encounter Plan of Treatment Not on file documented as of this encounter Visit Diagnoses Not on filedocumented in this encounter Care Teams Retail Cosmetics Sales Counter Manager Relationship Specialty Start Date End Date Parvin Browning MD PCP - General Internal Medicine 05/22/15 09/23/18 Raymundo Ulrich MD PCP - General Internal Medicine 09/24/18 11/15/18 Parvin Browning MD PCP - General Internal Medicine 11/16/18 10/02/20 Parvin Browning MD PCP - General 10/03/20 06/01/22 Hermanloli[facility]ai [address] [place] [address] PCP - General Internal Medicine 06/02/22 Parvin Browning MD Internal Medicine 10/03/20 12/06/21 Sam Calles PA Specialist Cardiology 11/03/21 Kesha Nuñez MD [address] [address] Surgeon Neurosurgery 01/24/22 Ana Chandra PA-C [address] [address] Specialist Neurosurgery 01/24/22 Caleb Lopez PA-C [address] [address] Specialist Neurosurgery 01/24/22 Yanet Sanford MD [address] [place] [address] Specialist Cardiology 08/24/22 documented as of this encounter
--- OUTSIDE RECORDS SUMMARY | 2025-03-14 11:05 | XMS_ITS | Encounter Summary ---
Author Organization [facility] Address [address] [place] [address] Care Team Providers Care Electronic Publications Specialist Name Role Phone Parvin Browning MD Primary Care Provider Raymundo Farfan MD Primary Care Provider Parvin Yip MD Primary Care Provider Parvin Alfaro MD Primary Care Provider Parvin Alfaro MD Unavailable Unavailable Sam Calles Unavailable Kesha Nuñez MD Unavailable [phone] Ana Chandra PA-C Unavailable [phone] Caleb Lopez PA-C Unavailable Shai Murphy Primary Care Provider Yanet Sanford MD Unavailable [phone] Encounter Details Date Type Department Care Team Description 02/22/2018 Release of Information Medical Records [address] [place] [address] Abstract, Provider Social History Tobacco Use Types [...] on filedocumented in this encounter Care Teams Electronic Publications Specialist Relationship Specialty Start Date End Date Parvin Browning MD PCP - General Internal Medicine 05/22/15 09/23/18 Raymundo Ulrich MD PCP - General Internal Medicine 09/24/18 11/15/18 Parvin Browning MD PCP - General Internal Medicine 11/16/18 10/02/20 Parvin Browning MD PCP - General 10/03/20 06/01/22 Shai Murphy [address] [place] [address] PCP - General Internal Medicine 06/02/22 Parvin Browning MD Internal Medicine 10/03/20 12/06/21 Sam Calles PA Specialist Cardiology 11/03/21 Kesha Nuñez MD [address] [address] Surgeon Neurosurgery 01/24/22 Ana Chandra PA-C [address] [address] Specialist Neurosurgery 01/24/22 Caleb Lopez PA-C 175 [facility] [address] [place] [address] Specialist Neurosurgery 01/24/22 Yanet Sanford MD [address] [place] [address] Specialist Cardiology 08/24/22 documented as of this encounter
--- OUTSIDE RECORDS SUMMARY | 2025-03-14 11:06 | XMS_ITS | Encounter Summary ---
Author Organization [facility] Address [address] [place] [address] Care Team Providers Care Belt Sander Name Role Phone Sam Calles Unavailable Kesha Nuñez MD Unavailable [phone] Ana Chandra PA-C Unavailable Caleb Lopez PA-C Unavailable [phone] Shai Murphy Primary Care Provider Yanet Sanford MD Unavailable [phone] Reason for Visit * Reason Comments E-prescribe Rx Request Encounter Details Date Type Department Care Team Description 11/20/2022 Refill Adult Medicine [address] [phone] Shai Murphy [address] [place] [phone] E-prescribe Rx Request Social History Tobacco Use [...] suspected to have Coronavirus/COVID-19? No / Unsure 11/21/2022 11:17 AM EST documented as of this encounter Miscellaneous Notes * Telephone Encounter - Josette Zarate - 11/22/2022 10:26 AM EST Please advise would you Like to repeat vitamin D level ? Recommend daily dosing * Telephone Encounter - Noa Barbosa - 11/22/2022 10:18 AM EST Patient would like script to be: E-PRESCRIBED/FAXED TO PHARMACY WHEN WAS THE PATIENT'S LAST APPOINTMENT IN ADULT MEDICINE? 08/04/22 WHEN WAS THE LAST TIME THE PATIENT SAW THEIR PCP? Same as above Does patient have an upcoming appointment? Yes 11/24/22 (THE MEDICATION REQUESTED IS ON THE MED [...] N/A Patients current insurance carrier is: Payor: [facility] FFS / Plan: [facility] / Product Type: MEDICAID RISK documented in this encounter Plan of Treatment Not on file documented as of this encounter Visit Diagnoses Not on filedocumented in this encounter Care Teams Belt Sander Relationship Specialty Start Date End Date Shai MurphyKishore [address] [place] [address] PCP - General Internal Medicine 06/02/22 Sam Calles PA Specialist Cardiology 11/03/21 Kesha Nuñez MD [address] [address] Surgeon Neurosurgery 01/24/22 Aan Chandra PA-C [address] [address] Specialist Neurosurgery 01/24/22 Caleb Lopez PA-C [address] [address] Specialist Neurosurgery 01/24/22 Yanet Sanford MD [address] [place] [address] Specialist Cardiology 08/24/22 documented as of this encounter
--- OUTSIDE RECORDS SUMMARY | 2025-03-14 11:06 | XMS_ITS | Encounter Summary ---
Author Organization [facility] Address [address] [place] [address] Care Team Providers Care Tube Filler Name Role Phone Sam Calles Unavailable Kesha Nuñez MD Unavailable [phone] Ana Chandra PA-C Unavailable Caleb Lopez PA-C Unavailable Shai Murphy Primary Care Provider [phone] Yanet Sanford MD Unavailable [phone] Encounter Details Date Type Department Care Team Description 11/14/2022 Telephone Gastroenterology - [address] [place] [address] Nelly Hodge DScPAS Social History [...] suspected to have Coronavirus/COVID-19? Unable to assess 11/14/2022 7:58 AM EST documented as of this encounter Plan of Treatment Not on file documented as of this encounter Visit Diagnoses Not on filedocumented in this encounter Care Teams Tube Filler Relationship Specialty Start Date End Date Tee Murphysascha Alexander [address] [place] [address] PCP - General Internal Medicine 06/02/22 Sam Calles PA Specialist Cardiology 11/03/21 Kesha Nuñez MD [address] [address] Surgeon Neurosurgery 01/24/22 Ana Chandra PA-C [address] [address] Specialist Neurosurgery 01/24/22 Caleb Lopez PA-C [address] [address] Specialist Neurosurgery 01/24/22 Yanet Sanford MD [address] [place] [address] Specialist Cardiology 08/24/22 documented as of this encounter
[2025-03-14 11:15] LABS: MANUAL DIFF FLAG NO
[2025-03-14 11:16] LABS: Basophils Absolute Auto 0.1 X10*3/uL (0.0-0.2); Basophils Percent Auto 0.6 % (0-2); Eosinophils Absolute Auto 0.1 X10*3/uL (0.0-0.4); Eosinophils Percent Auto 0.9 % (0-4); Hematocrit 35.9 % (37.0-47.0); Hemoglobin 11.5 g/dl (12.0-16.0); Imm Gran Abs Auto 0.03 X10*3/uL (0.00-0.03); Imm Gran Pct Auto 0.3 % (0.0-0.4); Lymphocytes Absolute Auto 3.2 X10*3/uL (1.2-4.9); Lymphocytes Percent Auto 35.2 % (20-40); Mean Corpuscular Hemoglobin 27.7 pg (27.0-33.0); Mean Corpuscular Volume 86.5 fL (80.0-98.0); Monocytes Absolute Auto 0.6 X10*3/uL (0.1-1.2); Monocytes Percent Auto 6.9 % (2-11); Neutrophils Absolute Auto 5.1 x10*3/uL (2.0-8.3); Neutrophils Percent Auto 56.1 % (45-73); Platelet Count 353 X10*3/uL (160-400); Red Blood Count 4.15 X10*6/uL (4.20-5.50); Red Cell Distribution Width 13.1 % (11.0-16.0)
[2025-03-14 11:33] LABS: Alanine Aminotransferase 16 U/L (0-31); Albumin Level 4.4 g/dL (3.5-5.0); Alkaline Phosphatase 91 U/L (39-117); Anion Gap 11 (12-20); Aspartate Amino Transferase 28 U/L (5-31); Bilirubin Total 1.1 mg/dL (0.0-1.0); Blood Urea Nitrogen 9 mg/dL (9-16); C Reactive Protein 0.35 mg/dL (< or = 0.50); Calcium 9.7 mg/dL (8.4-10.2); Carbon Dioxide 28 mmol/L (22-29); Chloride 106 mmol/L (96-108); Creatinine Clr Calc Pharmacy 99.9; Estimated Glomerular Filt Rate > 60; Glucose Random 81 mg/dL (60-115); Lipase 65 U/L (8-78); Magnesium 2.1 mg/dL (1.6-2.6); Potassium 4.3 mmol/L (3.3-5.1); Sodium 141 mmol/L (135-145); Total Protein 7.6 g/dL (6.5-8.0)
[2025-03-14] MEDS: Metoclopramide HCl 10 MG/2 ML VIAL IVPUSH (11:36)
[2025-03-14] MEDS: Ketorolac Tromethamine 15 MG/ML VIAL IVPUSH (11:40)
[2025-03-14] MEDS: Cyclobenzaprine HCl 5 MG TABLET PO (11:43)
[2025-03-14] MEDS: diphenhydrAMINE HCL 50 MG/ML VIAL 25 MG IVPUSH (11:43)
[2025-03-14] MEDS: 0.9 % Sodium Chloride 1,000 ML 999 ML IV (11:44)
[2025-03-14 11:52] LABS: Influenza A PCR NEGATIVE (Negative); Influenza B PCR NEGATIVE (Negative); Resp Syncy Virus RNA Qual PCR NEGATIVE (Negative); SARS COV2 PCR INHOUSE NEGATIVE (Negative)
[2025-03-14 12:26] VITALS: BP 111/59; PULSE 75; RESP 16; TEMP 36.6; O2SAT 100
[2025-03-14 13:49] LABS: Appearance Urine Clear; Color Urine Yellow; Glucose Urine UA Negative (Negative); Leukocyte Esterase Urine Negative (Negative); Nitrite Urine Negative (Negative); Urine Blood Negative (Negative); Urine Ketones Negative (Negative); Urine Protein Negative (Neg-Trace)
[2025-03-14 14:13] VITALS: BP 123/73; PULSE 70; RESP 20; TEMP 36; O2SAT 100
[2025-03-14 15:04] VITALS: BP 123/73; PULSE 70; RESP 20; TEMP 36; O2SAT 100
== END 2025-03-14 15:06 | disposition home or self-care (01) ==
PROVIDERS: Nurse Practitioner Family; Emergency Provider Emergency Medicine Emergency Medical Services; PCP Internal Medicine
DX: R51.9 Headache, unspecified (principal); M54.50 Low back pain, unspecified; M79.604 Pain in right leg; I10 Essential (primary) hypertension; Z03.818 Encounter for observation for suspected exposure to other biological agents ruled out; Z79.899 Other long term (current) drug therapy
CPT/HCPCS: 0241U; 36415; 70450; 80053; 81003; 83690; 83735; 85025; 86140; 96361; 96374; 96375; 99284; 99285; J1200; J1885; J2765

== ENCOUNTER → 2025-03-14 10:53 | Outpatient (BNV) | payer OTHER, SELFPAY | PROVIDERS: Emergency Provider Emergency Medicine Emergency Medical Services; PCP Internal Medicine; Visit Provider Radiology Diagnostic Radiology | DX: R51.9 Headache, unspecified (principal) | CPT/HCPCS: 70450 ==